=== PATIENT | male | born 1965 | race Two or more races ===

== ENCOUNTER 2017-08-19 23:40 | Inpatient (IN) | payer OTHER ==
[~2017-08-19] VITALS: Ht 172.7 cm; Wt 82.6 kg
[2017-08-20] VITALS (9 sets, daily range): BP systolic 98–128; BP diastolic 62–74
[2017-08-20] MEDS ORDERED: Morphine Sulfate 4mg/ml Inj IVP ONE ×3 (00:15→03:30)
[2017-08-20] MEDS ORDERED: Acetaminophen 500mg (ES) tab ORAL ONE (00:15)
[2017-08-20] MEDS ORDERED: cefTRIAXone 1 GM in NS 55 ML IVPB ONE (00:30)
[2017-08-20] MEDS ORDERED: Azithromycin 500 MG in NS 275 ML IV ONE (00:30)
[2017-08-20 00:57] LABS: BASOPHILS % (AUTO) 0.7 % (0.0-2.0); EOSINOPHILS % (AUTO) 0.9 % (0.0-3.0); HEMATOCRIT 40.1 % (42.0-52.0); HEMOGLOBIN 13.9 G/DL (14.2-18.0); LYMPHOCYTES % (AUTO) 16.6 % (20.0-45.0); MEAN CORPUSCULAR VOLUME 95 FL (80-99); MONOCYTES % (AUTO) 7.6 % (1.0-10.0); NEUTROPHILS % (AUTO) 74.2 % (45.0-75.0); PLATELET COUNT 320 K/UL (150-450); RED BLOOD COUNT 4.21 M/UL (4.70-6.10); RED CELL DISTRIBUTION WIDTH 10.5 % (11.6-14.8); WHITE BLOOD COUNT 14.6 K/UL (4.8-10.8)
[2017-08-20 01:10] LABS: ANION GAP 11 mmol/L (5-15); BLOOD UREA NITROGEN 24 mg/dL (7-18); CALCIUM 9.1 MG/DL (8.5-10.1); CARBON DIOXIDE 23 MMOL/L (21-32); CHLORIDE 104 MMOL/L (98-107); POTASSIUM 4.3 MMOL/L (3.5-5.1); SODIUM 138 MMOL/L (136-145)
[2017-08-20 01:25] LABS: ALANINE AMINOTRANSFERASE 24 U/L (12-78); ALBUMIN 3.4 G/DL (3.4-5.0); ALBUMIN/GLOBULIN RATIO 0.8 (1.0-2.7); ALKALINE PHOSPHATASE 77 U/L (46-116); ASPARTATE AMINO TRANSFERASE 21 U/L (15-37); BILIRUBIN,TOTAL 0.6 MG/DL (0.2-1.0); CKMB 0.5 NG/ML (0.0-3.6); CREATINE KINASE 45 U/L (26-308)
[2017-08-20] MEDS ORDERED: Isovue-370 150ml vial INJ PRN (01:30)
--- NOTE | 2017-08-20 02:05 | Emergency Room Report ---
History of Present Illness General Chief Complaint: Upper Respiratory Illness Source: Patient Present Illness HPI Is a 52-year-old male with no past medical history per patient. He presents with chief complaint is right-sided chest pain. He's been coughing and congested for 10 days. Saw a physician and prescribed Levaquin, Motrin and cough medicine. Not getting better. Pain is 10 out of 10 with inspiration or coughing. Denies any fever chills. Coughing is productive of phlegm. No radiation. Pain is sharp. Allergies: Coded Allergies: No Known Allergies (Unverified , 08/19/17) Patient History Past Medical History: see triage record, old chart reviewed Past Surgical History: none Pertinent Family History: none Social History: Denies: smoking Immunizations: other Reviewed Nursing Documentation: PMH: Agreed; PSxH: Agreed Nursing Documentation-PMH Past Medical History: No Stated History Review of Systems Eye: Denies: eye pain, blurred vision ENT: Denies: ear pain, nose congestion, throat swelling Respiratory: Reports: cough; Denies: shortness of breath Cardiovascular: Reports: chest pain; Denies: palpitations Gastrointestinal: Denies: abdominal pain, diarrhea, nausea, vomiting Musculoskeletal: Denies: back pain, joint pain Skin: Denies: rash Neurological: Denies: headache, numbness Endocrine: Denies: increased thirst, increased urine Hematologic/Lymphatic: Denies: easy bruising All Other Systems: negative except mentioned in HPI Physical Exam Vital Signs Date Time Temp Pulse Resp B/P (MAP) Pulse Ox O2 Delivery O2 Flow Rate FiO2 08/19/17 23:44 100.3 93 18 124/84 98 Room Air 100.2 vitals with fever Sp02 EP Interpretation: reviewed, normal General Appearance: well appearing, no apparent distress, alert Head: normocephalic, atraumatic Eyes: bilateral eye PERRL, bilateral eye EOMI ENT: hearing grossly normal, normal pharynx Neck: full range of motion, supple, no meningismus Respiratory: chest non-tender, decreased breath sounds, rhonchi - right lungs Cardiovascular #1: regular rate, rhythm, no murmur Gastrointestinal: normal bowel sounds, non tender, no mass, no organomegaly, no bruit, non-distended Musculoskeletal: back normal, gait/station normal, normal range of motion Psychiatric: mood/affect normal Skin: warm/dry Medical Decision Making Diagnostic Impression: Primary Impression: Community acquired bacterial pneumonia Additional Impression: Cavitary pneumonia ER Course Patient presents with cavitary pneumonia of the right lung. He has been on Levaquin for several days. I switched him to Rocephin and azithromycin. CT findings concerning for neoplastic process, possible TB, possible other granulomatosis infection. Will admit the patient in isolation. I contacted Dr. Rhodes for admission. Laboratory Tests Test 08/20/17 00:30 08/20/17 01:55 White Blood Count 14.6 K/UL (4.8-10.8) H Red Blood Count 4.21 M/UL (4.70-6.10) L Hemoglobin 13.9 G/DL (14.2-18.0) L Hematocrit 40.1 % (42.0-52.0) L Mean Corpuscular Volume 95 FL (80-99) Mean Corpuscular Hemoglobin 33.1 PG (27.0-31.0) H Mean Corpuscular Hemoglobin Concent 34.7 G/DL (32.0-36.0) Red Cell Distribution Width 10.5 % (11.6-14.8) L Platelet Count 320 K/UL (150-450) Mean Platelet Volume 8.0 FL (6.5-10.1) Neutrophils (%) (Auto) 74.2 % (45.0-75.0) Lymphocytes (%) (Auto) 16.6 % (20.0-45.0) L Monocytes (%) (Auto) 7.6 % (1.0-10.0) Eosinophils (%) (Auto) 0.9 % (0.0-3.0) Basophils (%) (Auto) 0.7 % (0.0-2.0) Sodium Level 138 MMOL/L (136-145) Potassium Level 4.3 MMOL/L (3.5-5.1) Chloride Level 104 MMOL/L (98-107) Carbon Dioxide Level 23 MMOL/L (21-32) Anion Gap 11 mmol/L (5-15) Blood Urea Nitrogen 24 mg/dL (7-18) H Creatinine 1.0 MG/DL (0.55-1.30) Estimat Glomerular Filtration Rate > 60 mL/min (>60) Glucose Level 123 MG/DL (74-106) H Lactic Acid Level 1.10 mmol/L (0.66-2.22) Calcium Level 9.1 MG/DL (8.5-10.1) Total Bilirubin 0.6 MG/DL (0.2-1.0) Aspartate Amino Transf (AST/SGOT) 21 U/L (15-37) Alanine Aminotransferase (ALT/SGPT) 24 U/L (12-78) Alkaline Phosphatase 77 U/L (46-116) Total Creatine Kinase 45 U/L (26-308) Creatine Kinase MB 0.5 NG/ML (0.0-3.6) Creatine Kinase MB Relative Index 1.1 Troponin I 0.000 ng/mL (0.000-0.056) Total Protein 7.9 G/DL (6.4-8.2) Albumin 3.4 G/DL (3.4-5.0) Globulin 4.5 g/dL Albumin/Globulin Ratio 0.8 (1.0-2.7) L Urine Color Yellow Urine Appearance Clear Urine pH 5 (4.5-8.0) Urine Specific [place] 1.020 (1.005-1.035) Urine Protein Negative (NEGATIVE) Urine Glucose (UA) Negative (NEGATIVE) Urine Ketones Negative (NEGATIVE) Urine Occult Blood Negative (NEGATIVE) Urine Nitrite Negative (NEGATIVE) Urine Bilirubin Negative (NEGATIVE) Urine Urobilinogen Normal MG/DL (0.0-1.0) Urine Leukocyte Esterase Negative (NEGATIVE) Lab Results Impression labs with leukocytosis EKG Diagnostic Results Rate: normal Rhythm: NSR ST Segments: no acute changes Rhythm Strip Diag. Results Rhythm Strip Time: 02:04 EP Interpretation: yes Rate: 82 Rhythm: NSR, no PVC's, no ectopy Chest X-Ray Diagnostic Results Chest X-Ray Diagnostic Results : Chest X-Ray Ordered: Yes # of Views/Limited/Complete: 1 View Indication: Chest Pain EP Interpretation: Yes Interpretation: no effusion, no pneumothorax, other - right lower lobe infiltrate Impression: Other - right lower lobe infiltrate Electronically Signed by: Jluis Hernandez MD CT/MRI/US Diagnostic Results CT/MRI/US Diagnostic Results : Imaging Test Ordered: CT chest Impression Read by radiologist. There is a focal consolidation of the right lower lobe with central cavitary measuring up to 4.9 cm. Last Vital Signs Date Time Temp Pulse Resp B/P (MAP) Pulse Ox O2 Delivery O2 Flow Rate FiO2 08/20/17 00:43 101.2 08/20/17 00:10 88 33 Room Air 08/20/17 00:00 112/71 97 Status: improved Disposition: ADMITTED INPATIENT Condition: Serious Referrals: [facility],REFERRING (PCP) JLUIS HERNANDEZ M.D. August 20, 2017 02:05
[2017-08-20 02:18] LABS: APPEARANCE,URINE CLEAR; BILIRUBIN, URINE NEGATIVE (NEGATIVE); GLUCOSE, URINE (UA) NEGATIVE (NEGATIVE); KETONES,URINE NEGATIVE (NEGATIVE); LEUKOCYTE ESTERASE ,URINE NEGATIVE (NEGATIVE); NITRITE,URINE NEGATIVE (NEGATIVE); PH,URINE 5 (4.5-8.0); PROTEIN,URINE NEGATIVE (NEGATIVE); UROBILINOGEN,URINE NORMAL MG/DL (0.0-1.0)
[2017-08-20 02:31] LABS: COLOR,URINE YELLOW
[2017-08-20] MEDS ORDERED: PHENERGAN25 M1 ORAL (05:03)
[2017-08-20] MEDS ORDERED: ZYRTEC10 MG ORAL (05:03)
[2017-08-20] MEDS ORDERED: IBUPROFEN600 MG ORAL (05:03)
[2017-08-20] MEDS ORDERED: LEVAQUIN250 M1 ORAL (05:03)
[2017-08-20] MEDS ORDERED: Albuterol/Ipratropium 3ml neb HHN PRN (08:30)
[2017-08-20] MEDS ORDERED: guaiFENesin 100mg/5ml Liq ud ORAL PRN (08:30)
[2017-08-20] MEDS: guaiFENesin ER 600mg tab ORAL SCH ×2 (09:35→17:05)
[2017-08-20] MEDS: Heparin 5000 units/ml inj SUBQ SCH ×2 (09:36→21:10)
--- NOTE | 2017-08-20 09:44 | Diagnostic Imaging Report ---
ndication: Shortness of breath Technique: IV administration nonionic contrast. Spiral acquisitions obtained from the lung bases to the lung apices. Multiplanar and 3-D reconstructions were generated. Total dose length product 961.62 mGycm. CTDIvol(s) 24.9 mGy. Dose reduction achieved using automated exposure control Comparison: none Findings: Pulmonary arterial opacification is suboptimal, precluding confident exclusion of small distal emboli. No evidence of thoracic aortic aneurysm or dissection. No pulmonary arterial dilatation. No evidence of right ventricular dilatation. There is borderline four-chamber cardiomegaly noted. There is a mass in the periphery of the right lower lobe which measures 4.5 cm AP by 3.9 cm transverse by 4 cm craniocaudad. This demonstrates fluid and cavitation centrally. Infiltrates, groundglass opacities, and atelectasis are seen in both lower lobes. There is generalized mild interstitial septal thickening. Inspiration is suboptimal. There is a trace right pleural effusion No pericardial effusion demonstrated. There is right hilar lymphadenopathy, with a node measuring 2 cm long axis dimension. No mediastinal lymphadenopathy. Esophagus is unremarkable. The visualized portions of the thyroid are unremarkable. No axillary or chest wall mass or adenopathy. The included upper abdominal anatomy demonstrates possible subtle gallstones. There is a retroaortic left renal vein. Impression: Suboptimal opacification of the pulmonary arteries, distal emboli could be missed. No evidence of large vessel central pulmonary embolus demonstrated 4.5 x 3.9 x 4 cm cavitary mass in the periphery of the right lower lobe. This may be either neoplastic or inflammatory. Right hilar lymphadenopathy, likely related to the above. This could likewise be neoplastic or inflammatory. Bilateral reticular interstitial and groundglass opacities. Nonspecific, suspect on the basis of pulmonary edema, but could also be infectious or noninfectious inflammatory Trace right pleural effusion Borderline cardiomegaly Very questionable cholelithiasis incidentally noted This agrees with the preliminary interpretation provided overnight by [facility] teleradiology service. The CT scanner at [facility] is accredited by the [employer] and the scans are performed using protocols designed to limit radiation exposure to as low as reasonably achievable to attain images of sufficient resolution adequate for diagnostic evaluation.
--- NOTE | 2017-08-20 10:19 | Diagnostic Imaging Report ---
Indication: Shortness of breath Technique: One view of the chest Comparison: none Findings: Inspiration is suboptimal. Atelectatic changes are seen at both lung bases. There is a mass with subtle central cavitation seen in the right midlung. There is generalized mild interstitial prominence. Heart size is upper limits of normal. Impression: Right midlung mass with subtle central cavitation, also described on subsequent chest CT. Neoplastic versus inflammatory Hypoventilatory exam with bilateral basilar atelectasis Nonspecific mild bilateral diffuse interstitial prominence
--- NOTE | 2017-08-20 10:29 | Consultation ---
Consult Note Consult Note PULMONARY & CRITICAL CARE CC: Lung mass/PNA HPI: 52 M current daily smoker p/w one week of cough congestion and SOB. He initially went to an UC and was Rx'd Levaquin to no avail. Tm 101.2, WCT 14, CT with RLL cavitary mass. No F/C, no ALDRIDGE, no dizziness, no weight loss, no hemoptysis, no N/V/D/C, no abdominal pain or urinary complaints. PMH: None PSH: None ALL: NKDA Active Scripts Medications Dose Route/Sig Max Daily Dose Days Date Category Phenergan* (Promethazine HCl) 25 Mg Tablet Unknown Dose ORAL 08/20/17 Reported Zyrtec* (Cetirizine HCl) 10 Mg Tablet Unknown Dose ORAL DAILY 08/20/17 Reported Motrin* (Ibuprofen) 600 Mg Tablet Unknown Dose ORAL 08/20/17 Reported Levaquin* (Levofloxacin) 250 Mg Tablet Unknown Dose ORAL DAILY 08/20/17 Reported SHx: 1/3 PPD X > 30 years, no drugs, no EtOH, from [place], works in [employer] RHx: N/C ROS: Neg other than HPI PE: Last 24 Hour Vital Signs Date Time Temp Pulse Resp B/P (MAP) Pulse Ox O2 Delivery O2 Flow Rate FiO2 08/20/17 08:01 98.0 73 19 98/62 93 Room Air 98.0 08/20/17 08:00 98.2 79 15 105/70 98 Room Air 98.2 08/20/17 06:50 73 19 98/62 93 Room Air 08/20/17 05:30 79 20 100/71 94 Room Air 08/20/17 04:13 98.0 08/20/17 03:30 98.0 82 19 107/68 95 Room Air 98.0 08/20/17 02:11 101.2 08/20/17 02:00 99.2 79 18 107/72 96 Room Air 99.2 08/20/17 01:42 99.2 08/20/17 00:43 101.2 08/20/17 00:42 101.2 08/20/17 00:10 88 33 Room Air 08/20/17 00:00 101.2 88 33 112/71 97 Room Air 101.2 08/19/17 23:44 100.3 93 18 124/84 98 Room Air 100.2 NAD, AAOX3 NC/AT, OPC c MMM Supple s LAD or JVD Scattered coarse, RLL rhonchi RRR S/NT/ND c NABS No C/C/E 08/19/17 CT-A CHEST: Impression: Suboptimal opacification of the pulmonary arteries, distal emboli could be missed. No evidence of large vessel central pulmonary embolus demonstrate 4.5 x 3.9 x 4 cm cavitary mass in the periphery of the right lower lobe. This may be either neoplastic or inflammatory Right hilar lymphadenopathy, likely related to the above. This could likewise be neoplastic or inflammatory Bilateral reticular interstitial and groundglass opacities. Nonspecific, suspect on the basis of pulmonary edema, but could also be infectious or noninfectious inflammator Tracright pleural effusion Borderline cardiomegaly betsy questionable cholelithiasis incidentally noted Assessment/Plan ASSESSMENT: * 4 cm RLL cavitary mass with R hilar LAD, CAP vs neoplasm * Extensive daily smoker * B GGO's and CM * Periorbital Xanthomas PLAN: * R/O TB with AFB x 3 * Sputum Cx * Atypical serologies sent * Zosyn (D1) * PRN HHN's * CTGBx * Optimize pulmonary hygiene/mobilize as tolerated * Nicotine patch * Discuss tobacco cessation * Monitor volumes * TTE * HbA1C, lipid panel * DVT Px: Hep SQ * FC Ahsan Rhodes MD, [facility] Pul[facility] Critical [facility] Medicine AHSAN RHODES M.D. August 20, 2017 10:28
[2017-08-20] MEDS ORDERED: Lidocaine 1% Plain 30 ml INJ PRN (10:30)
[2017-08-20 11:57] LABS: CHOLESTEROL 130 MG/DL (< 200); HDL CHOLESTEROL 24 MG/DL (40-60); TRIGLYCERIDES 91 MG/DL (30-150)
[2017-08-20] MEDS ORDERED: LORazepam 1mg tab ORAL PRN (12:15)
[2017-08-20] MEDS ORDERED: Morphine Sulfate 4mg/ml Inj IVP PRN (12:45)
[2017-08-20] MEDS: Piperacillin/Tazobactam 3.375 GM in NS 110 ML IVPB SCH (14:21)
--- NOTE | 2017-08-20 15:09 | History and Physical ---
History of Present Illness General Date patient seen: August 20, 2017 Time patient seen: 11:11 Reason for Hospitalization: Upper Respiratory Illness Present Illness HPI This is a 52 y/o male with a PMH of tobacco abuse who presents to the ER for right-sided chest pain. EKG was NSR and initial troponin was negative. CXR did show right midlung mass with subtle central cavitation c/w neoplasm vs. inflammation. Patient reports that he has been having productive cough for the last 1 week for which he was prescribed levaquin for by his PCP. In the ED, T was noted to be 101.4 and WBC 14. Patient was started on IV abx and IVF. CT chest w/ contrast was also obtained, which showed no e/o large vessel central pulmonary embolus. A 4.5 x 3.9 x 4 cm cavitary mass in the periphery of the right lower lobe. This may be either neoplastic or inflammatory. Right hilar LAD , likely related to the above. Bilateral reticular interstitial and groundglass opacities. Trace right pleural effusion, borderline cardiomegaly, and questionable cholelithiasis were also seen on the CT. CT findings were discussed in depth with patient. Patient does admit to smoking 1/3 pack for the last 20 years. Denies any other drug use or alcohol abuse. Continues to report right-sided chest pain and f/c. Denies sob, n/v, abdominal pain. Allergies: Coded Allergies: No Known Allergies (Unverified , 08/19/17) Medication History Scheduled Cetirizine Hcl* (Zyrtec*), Unknown Dose ORAL DAILY, (Reported) Levofloxacin* (Levaquin*), Unknown Dose ORAL DAILY, (Reported) Miscellaneous Medications Ibuprofen* (Motrin*), Unknown Dose ORAL, (Reported) Promethazine Hcl* (Phenergan*), Unknown Dose ORAL, (Reported) Patient History Healthcare decision maker Resuscitation status Full Code Advanced Directive on File Review of Systems All Other Systems: negative except mentioned in HPI Physical Exam General Appearance: no apparent distress, alert HEENT: normocephalic, atraumatic Neck: non-tender, normal alignment, supple Respiratory/Chest: chest wall non-tender, no respiratory distress, decreased breath sounds Cardiovascular/Chest: normal peripheral pulses, normal rate, regular rhythm Abdomen: normal bowel sounds, non tender, soft Extremities: normal range of motion, non-tender Skin Exam: normal pigmentation, warm/dry Neurologic: die keeper II-XII grossly normal, no motor/sensory deficits, alert, oriented x 3 Last 24 Hour Vital Signs Date Time Temp Pulse Resp B/P (MAP) Pulse Ox O2 Delivery O2 Flow Rate FiO2 08/20/17 12:12 82 16 Room Air 21 08/20/17 08:01 98.0 73 19 98/62 93 Room Air 98.0 08/20/17 08:00 98.2 79 15 105/70 98 Room Air 98.2 08/20/17 06:50 73 19 98/62 93 Room Air 08/20/17 05:30 79 20 100/71 94 Room Air 08/20/17 04:13 98.0 08/20/17 03:30 98.0 82 19 107/68 95 Room Air 98.0 08/20/17 02:11 101.2 08/20/17 02:00 99.2 79 18 107/72 96 Room Air 99.2 08/20/17 01:42 99.2 08/20/17 00:43 101.2 08/20/17 00:42 101.2 08/20/17 00:10 88 33 Room Air 08/20/17 00:00 101.2 88 33 112/71 97 Room Air 101.2 08/19/17 23:44 100.3 93 18 124/84 98 Room Air 100.2 Intake and Output 08/19/17 08/20/17 19:00 07:00 Intake Total 2800 ml Balance 2800 ml Intake IV Total 2800 ml Laboratory Tests Test 08/20/17 00:30 08/20/17 01:55 08/20/17 08:16 08/20/17 11:00 White Blood Count 14.6 K/UL (4.8-10.8) H Red Blood Count 4.21 M/UL (4.70-6.10) L Hemoglobin 13.9 G/DL (14.2-18.0) L Hematocrit 40.1 % (42.0-52.0) L Mean Corpuscular Volume 95 FL (80-99) Mean Corpuscular Hemoglobin 33.1 PG (27.0-31.0) H Mean Corpuscular Hemoglobin Concent 34.7 G/DL (32.0-36.0) Red Cell Distribution Width 10.5 % (11.6-14.8) L Platelet Count 320 K/UL (150-450) Mean Platelet Volume 8.0 FL (6.5-10.1) Neutrophils (%) (Auto) 74.2 % (45.0-75.0) Lymphocytes (%) (Auto) 16.6 % (20.0-45.0) L Monocytes (%) (Auto) 7.6 % (1.0-10.0) Eosinophils (%) (Auto) 0.9 % (0.0-3.0) Basophils (%) (Auto) 0.7 % (0.0-2.0) Sodium Level 138 MMOL/L (136-145) Potassium Level 4.3 MMOL/L (3.5-5.1) Chloride Level 104 MMOL/L (98-107) Carbon Dioxide Level 23 MMOL/L (21-32) Anion Gap 11 mmol/L (5-15) Blood Urea Nitrogen 24 mg/dL (7-18) H Creatinine 1.0 MG/DL (0.55-1.30) Estimat Glomerular Filtration Rate > 60 mL/min (>60) Glucose Level 123 MG/DL (74-106) H Lactic Acid Level 1.10 mmol/L (0.66-2.22) Calcium Level 9.1 MG/DL (8.5-10.1) Total Bilirubin 0.6 MG/DL (0.2-1.0) Aspartate Amino Transf (AST/SGOT) 21 U/L (15-37) Alanine Aminotransferase (ALT/SGPT) 24 U/L (12-78) Alkaline Phosphatase 77 U/L (46-116) Total Creatine Kinase 45 U/L (26-308) Creatine Kinase MB 0.5 NG/ML (0.0-3.6) Creatine Kinase MB Relative Index 1.1 Troponin I 0.000 ng/mL (0.000-0.056) Total Protein 7.9 G/DL (6.4-8.2) Albumin 3.4 G/DL (3.4-5.0) Globulin 4.5 g/dL Albumin/Globulin Ratio 0.8 (1.0-2.7) L Urine Color Yellow Urine Appearance Clear Urine pH 5 (4.5-8.0) Urine Specific [place] 1.020 (1.005-1.035) Urine Protein Negative (NEGATIVE) Urine Glucose (UA) Negative (NEGATIVE) Urine Ketones Negative (NEGATIVE) Urine Occult Blood Negative (NEGATIVE) Urine Nitrite Negative (NEGATIVE) Urine Bilirubin Negative (NEGATIVE) Urine Urobilinogen Normal MG/DL (0.0-1.0) Urine Leukocyte Esterase Negative (NEGATIVE) Erythrocyte Sedimentation Rate 63 MM/HR (0-20) H Hemoglobin A1c 4.9 % (4.3-6.0) C-Reactive Protein, Quantitative 7.0 mg/dL (0.00-0.90) H Triglycerides Level 91 MG/DL (30-150) Cholesterol Level 130 MG/DL (< 200) LDL Cholesterol 90 mg/dL (<100) HDL Cholesterol 24 MG/DL (40-60) L Cholesterol/HDL Ratio 5.4 (3.3-4.4) H Anti-Nuclear Antibody Screen Pending c-ANCA Titer Pending p-ANCA Titer Pending Coccidioides Antibody (Comp Fix) Pending Mycoplasma pneumoniae IgG Antibody Pending Mycoplasma pneumoniae IgM Ab Titer Pending Aspergillus flavus Antibody Pending Aspergillus fumigatus Antibody Pending Aspergillus niger Antibody Pending TB Test (T-Spot) Pending TB Test Nil Control (T-Spot) Pending TB Test Panel A (T-Spot) Pending TB Test Panel B (T-Spot) Pending TB Test Positive Control (T-Spot) Pending Test 08/20/17 11:50 Histoplasma Antigen Pending Urine Legionella Antigen Pending Height (Feet): 5 Height (Inches): 8.00 Weight (Pounds): 182 Medications Current Medications Medications (Trade) Dose Ordered Sig/Tracy Route PRN Reason Start Time Stop Time Status Last Admin Dose Admin Acetaminophen (Tylenol) 650 mg Q6H PRN ORAL Mild Pain/Temp > 100.5 08/20/17 12:45 09/19/17 12:44 Acetaminophen/ Hydrocodone Bitart ([place] 10/325) 1 tab Q4H PRN ORAL Moderate Pain (Pain Scale 4-6) 08/20/17 12:45 08/27/17 12:44 Albuterol/ Ipratropium (Albuterol/ Ipratropium) 3 ml Q4H PRN HHN Shortness of Breath 08/20/17 08:30 08/25/17 08:29 Guaifenesin (Mucinex ER) 600 mg TWICE A DAY ORAL 5/22/18 09:00 09/19/17 08:59 08/20/17 09:35 Guaifenesin (Robitussin) 100 mg Q4H PRN ORAL For Cough 08/20/17 08:30 09/19/17 08:29 Heparin Sodium (Porcine) (Heparin 5000 units/ml) 5,000 units EVERY 12 HOURS SUBQ 08/20/17 09:00 09/19/17 08:59 08/20/17 09:36 Iopamidol (Isovue-370 150ml) 150 ml NOW PRN INJ Radiology Procedure 08/20/17 01:30 08/22/17 01:19 Lidocaine HCl (Xylocaine 1% 30ml) 30 ml NOW PRN INJ Radiology Procedure 08/20/17 10:30 08/20/17 23:59 Lorazepam (Ativan) 2 mg Q6H PRN ORAL For Anxiety 08/20/17 12:15 08/27/17 12:14 Morphine Sulfate (Morphine Sulfate) 4 mg Q4H PRN IVP Severe Pain (Pain Scale 7-10) 08/20/17 12:45 08/27/17 12:44 Nicotine (Nicoderm) 1 patch Q24H TDERMAL 08/20/17 12:00 09/19/17 11:59 08/20/17 12:38 Piperacillin Sod/ Tazobactam Sod 3.375 gm/Sodium Chloride 110 ml @ 27.5 mls/hr EVERY 8 HOURS IVPB 08/20/17 14:00 08/25/17 13:59 08/20/17 14:21 Assessment/Plan Problem List: (1) Tobacco abuse ICD Codes: Z72.0 - Tobacco use SNOMED: 436274051 (2) Community acquired bacterial pneumonia ICD Codes: J15.9 - Unspecified bacterial pneumonia; J98.4 - Other disorders of lung SNOMED: 113337326, 30033988 (3) Cavitary pneumonia ICD Codes: J18.9 - Pneumonia, unspecified organism; J98.4 - Other disorders of lung SNOMED: 475062103 (4) Sepsis due to pneumonia ICD Codes: J18.9 - Pneumonia, unspecified organism; A41.9 - Sepsis, unspecified organism SNOMED: 00520914, 693746055 Status: stable, progressing Assessment/Plan - Admit to inpatient - Pulmonology and ID following - IV azithromycin and ceftriaxone - AFB x 3, r/o TB - airborne precautions - f/u sputum cx - f/u blood cx - atypical serologies sent - duonebs prn - CT-guided biopsy to r/o malignancy given cavitary mass. Risks and benefits explained to patient in detail including the risks of infection, bleeding, and PTX. Patient agreeable to proceed. - Nicotine patch - IVF - TTE - lipid panel, A1c - pain and supportive care DVT Prophylaxis: SCD, HSQ Code Status: Full Hospital Classification Declaration: Based on this initial evaluation, and depending on the patient's clinical course, I anticipate that this patient will require hospitalization for [] days for [] and close respiratory/hemodynamic monitoring. Disposition: Once the patient is stable to leave the hospital, I anticipate the patient will likely be discharged to the following environment: home with I spent 72 minutes on this patient's case, and 42 minutes were dedicated to counseling and/or care coordination. Discussed with patient/family, nursing staff, SW/CM, ID, and newspaper writer regarding clinical status, treatment course , and disposition planning. Thank you for this consultation, Dr. Rhodes. Time of note may not reflect time of encounter. Janine Plasencia NP August 20, 2017 15:09
--- NOTE | 2017-08-20 16:05 | Cardiology Report ---
APPROVED REPORT EXAM: Two-dimensional and M-mode echocardiogram with Doppler and color Doppler. INDICATION Chest Pain M-Mode DIMENSIONS IVSd0.9 (0.7-1.1cm)Left Atrium (MM)4.5 (1.6-4.0cm) LVDd5.4 (3.5-5.6cm)Aortic Root2.7 (2.0-3.7cm) PWd1.0 (0.7-1.1cm)Aortic Cusp Exc.1.8 (1.5-2.0cm) IVSs0.9 cm LVDs3.8 (2.5-4.0cm) PWs1.1 cm Technically difficult study due to poor acoustical windows. Normal left ventricular chamber size, systolic function and wall motion. Left ventricular ejection fraction estimated to be 60-65%. No evidence of left ventricular hypertrophy. No evidence of pericardial or pleural effusion. All other cardiac chamber sizes are within normal limits. Focal aortic valve sclerosis with adequate cusp excursion. Thickened mitral valve leaflets with normal excursion. Mild mitral annulus and aortic root calcification. Pulmonic valve not well visualized. Normal tricuspid valve structure. IVC is not clearly seen and may be underfilled suggestive of low RA pressure A color flow and spectral Doppler study was performed and revealed: No aortic regurgitation. No mitral regurgitation. Mitral diastolic velocities suggest reduced left ventricular relaxation c/w diastolic dysfunction grade 1. No tricuspid regurgitation. Pulmonic regurgitation present.
--- NOTE | 2017-08-20 20:11 | Infectious Diseases Prog Note ---
Assessment/Plan Assessment/Plan Full consult dictated: A) 1) pneumonia vs neoplasm, ? cap, ? atypical, ? fungal, ? tuberculosis, ? mrsa , ? post-obstructive/anaerobic 2) ? sepsis, leukocytosis, fevers 3) pmh noted 4) allergies - nkda P) 1) zosyn and vancomycin, azithromycin 2) check sputum cultures, check biopsy, check serology, f/u lab, f/u chest x- ray 3) d/w Dr. Rhodes about abx 4) thank you Subjective Allergies: Coded Allergies: No Known Allergies (Unverified , 08/19/17) Objective Vital Signs Last 24 Hour Vital Signs Date Time Temp Pulse Resp B/P (MAP) Pulse Ox O2 Delivery O2 Flow Rate FiO2 08/20/17 18:15 100.4 08/20/17 17:16 100.9 08/20/17 16:00 100.9 85 18 111/71 85 Room Air 100.9 08/20/17 12:12 82 16 Room Air 21 08/20/17 12:00 98.2 80 16 110/74 98 Room Air 98.2 08/20/17 08:01 98.0 73 19 98/62 93 Room Air 98.0 08/20/17 08:00 98.2 79 15 105/70 98 Room Air 98.2 08/20/17 06:50 73 19 98/62 93 Room Air 08/20/17 05:30 79 20 100/71 94 Room Air 08/20/17 04:13 98.0 08/20/17 03:30 98.0 82 19 107/68 95 Room Air 98.0 08/20/17 02:11 101.2 08/20/17 02:00 99.2 79 18 107/72 96 Room Air 99.2 08/20/17 01:42 99.2 08/20/17 00:43 101.2 08/20/17 00:42 101.2 08/20/17 00:10 88 33 Room Air 08/20/17 00:00 101.2 88 33 112/71 97 Room Air 101.2 08/19/17 23:44 100.3 93 18 124/84 98 Room Air 100.2 Height (Feet): 5 Height (Inches): 8.00 Weight (Pounds): 182 Laboratory Tests Test 5/22/18 00:30 08/20/17 01:55 08/20/17 08:16 08/20/17 11:00 White Blood Count 14.6 K/UL (4.8-10.8) H Red Blood Count 4.21 M/UL (4.70-6.10) L Hemoglobin 13.9 G/DL (14.2-18.0) L Hematocrit 40.1 % (42.0-52.0) L Mean Corpuscular Volume 95 FL (80-99) Mean Corpuscular Hemoglobin 33.1 PG (27.0-31.0) H Mean Corpuscular Hemoglobin Concent 34.7 G/DL (32.0-36.0) Red Cell Distribution Width 10.5 % (11.6-14.8) L Platelet Count 320 K/UL (150-450) Mean Platelet Volume 8.0 FL (6.5-10.1) Neutrophils (%) (Auto) 74.2 % (45.0-75.0) Lymphocytes (%) (Auto) 16.6 % (20.0-45.0) L Monocytes (%) (Auto) 7.6 % (1.0-10.0) Eosinophils (%) (Auto) 0.9 % (0.0-3.0) Basophils (%) (Auto) 0.7 % (0.0-2.0) Sodium Level 138 MMOL/L (136-145) Potassium Level 4.3 MMOL/L (3.5-5.1) Chloride Level 104 MMOL/L (98-107) Carbon Dioxide Level 23 MMOL/L (21-32) Anion Gap 11 mmol/L (5-15) Blood Urea Nitrogen 24 mg/dL (7-18) H Creatinine 1.0 MG/DL (0.55-1.30) Estimat Glomerular Filtration Rate > 60 mL/min (>60) Glucose Level 123 MG/DL (74-106) H Lactic Acid Level 1.10 mmol/L (0.66-2.22) Calcium Level 9.1 MG/DL (8.5-10.1) Total Bilirubin 0.6 MG/DL (0.2-1.0) Aspartate Amino Transf (AST/SGOT) 21 U/L (15-37) Alanine Aminotransferase (ALT/SGPT) 24 U/L (12-78) Alkaline Phosphatase 77 U/L (46-116) Total Creatine Kinase 45 U/L (26-308) Creatine Kinase MB 0.5 NG/ML (0.0-3.6) Creatine Kinase MB Relative Index 1.1 Troponin I 0.000 ng/mL (0.000-0.056) Total Protein 7.9 G/DL (6.4-8.2) Albumin 3.4 G/DL (3.4-5.0) Globulin 4.5 g/dL Albumin/Globulin Ratio 0.8 (1.0-2.7) L Urine Color Yellow Urine Appearance Clear Urine pH 5 (4.5-8.0) Urine Specific [place] 1.020 (1.005-1.035) Urine Protein Negative (NEGATIVE) Urine Glucose (UA) Negative (NEGATIVE) Urine Ketones Negative (NEGATIVE) Urine Occult Blood Negative (NEGATIVE) Urine Nitrite Negative (NEGATIVE) Urine Bilirubin Negative (NEGATIVE) Urine Urobilinogen Normal MG/DL (0.0-1.0) Urine Leukocyte Esterase Negative (NEGATIVE) Erythrocyte Sedimentation Rate 63 MM/HR (0-20) H Hemoglobin A1c 4.9 % (4.3-6.0) C-Reactive Protein, Quantitative 7.0 mg/dL (0.00-0.90) H Triglycerides Level 91 MG/DL (30-150) Cholesterol Level 130 MG/DL (< 200) LDL Cholesterol 90 mg/dL (<100) HDL Cholesterol 24 MG/DL (40-60) L Cholesterol/HDL Ratio 5.4 (3.3-4.4) H Anti-Nuclear Antibody Screen Pending c-ANCA Titer Pending p-ANCA Titer Pending Coccidioides Antibody (Comp Fix) Pending Mycoplasma pneumoniae IgG Antibody Pending Mycoplasma pneumoniae IgM Ab Titer Pending Aspergillus flavus Antibody Pending Aspergillus fumigatus Antibody Pending Aspergillus niger Antibody Pending TB Test (T-Spot) Pending TB Test Nil Control (T-Spot) Pending TB Test Panel A (T-Spot) Pending TB Test Panel B (T-Spot) Pending TB Test Positive Control (T-Spot) Pending Test 08/20/17 11:50 08/20/17 11:51 08/20/17 16:20 Histoplasma Antigen Pending Urine Legionella Antigen Pending M. tuberculosis Complex DNA (PCR) Pending Troponin I 0.000 ng/mL (0.000-0.056) Current Medications Medications (Trade) Dose Ordered Sig/Tracy Route PRN Reason Start Time Stop Time Status Last Admin Dose Admin Acetaminophen (Tylenol) 650 mg Q6H PRN ORAL Mild Pain/Temp > 100.5 08/20/17 12:45 09/19/17 12:44 08/20/17 17:16 Acetaminophen/ Hydrocodone Bitart ([place] 10/325) 1 tab Q4H PRN ORAL Moderate Pain (Pain Scale 4-6) 08/20/17 12:45 08/27/17 12:44 Albuterol/ Ipratropium (Albuterol/ Ipratropium) 3 ml Q4H PRN HHN Shortness of Breath 08/20/17 08:30 08/25/17 08:29 Guaifenesin (Mucinex ER) 600 mg TWICE A DAY ORAL 08/20/17 09:00 09/19/17 08:59 08/20/17 17:05 Guaifenesin (Robitussin) 100 mg Q4H PRN ORAL For Cough 08/20/17 08:30 09/19/17 08:29 Heparin Sodium (Porcine) (Heparin 5000 units/ml) 5,000 units EVERY 12 HOURS SUBQ 08/20/17 09:00 09/19/17 08:59 08/20/17 09:36 Iopamidol (Isovue-370 150ml) 150 ml NOW PRN INJ Radiology Procedure 08/20/17 01:30 08/22/17 01:19 Lidocaine HCl (Xylocaine 1% 30ml) 30 ml NOW PRN INJ Radiology Procedure 08/20/17 10:30 08/20/17 23:59 Lorazepam (Ativan) 2 mg Q6H PRN ORAL For Anxiety 08/20/17 12:15 08/27/17 12:14 Morphine Sulfate (Morphine Sulfate) 4 mg Q4H PRN IVP Severe Pain (Pain Scale 7-10) 08/20/17 12:45 08/27/17 12:44 Nicotine (Nicoderm) 1 patch Q24H TDERMAL 08/20/17 12:00 09/19/17 11:59 08/20/17 12:38 Piperacillin Sod/ Tazobactam Sod 3.375 gm/Sodium Chloride 110 ml @ 27.5 mls/hr EVERY 8 HOURS IVPB 08/20/17 14:00 08/25/17 13:59 08/20/17 14:21 RENAE WING August 20, 2017 20:11
[2017-08-20] MEDS ORDERED: Vancomycin 1.5 GM/D5W 250ML IVPB SCH (21:00)
[2017-08-20] MEDS: HYDROcodone/Acetamin 10/325 tab ORAL PRN (21:08)
[2017-08-21] VITALS: BP 116/69
[2017-08-21] MEDS: Piperacillin/Tazobactam 3.375 GM in NS 110 ML IVPB SCH ×4 (00:38→23:17)
--- NOTE | 2017-08-21 02:30 | Consultation ---
DATE OF CONSULTATION: 08/20/2017 INFECTIOUS DISEASE CONSULTATION CONSULTING PHYSICIAN: Harsha Diez M.D. ATTENDING PHYSICIAN: Ahsan Rhodes M.D. REFERRING PHYSICIANS: 1. Ahsan Rhodes M.D. 2. Rashad Faust M.D. 3. Janine Plasencia, nurse practitioner. REASON FOR CONSULTATION: Possible pneumonia, leukocytosis, fevers, questionable sepsis. CHIEF COMPLAINT: The patient's chief complaint coming in the hospital is pneumonia. HISTORY OF PRESENT ILLNESS: This is a 52-year-old male, who has history of smoking, who over the last 2 weeks has been coughing. He has had cough, congestion, and has whitish-yellow sputum production. The patient was given in the outpatient setting what looks like antibiotics including Levaquin. The patient was admitted to [facility] because of fevers, elevated white count, pneumonia seen on chest x-ray, and CT scan which showed cavitary lesions specifically in the right lower periphery with a right lower lobe cavitary mass. Infectious Disease consultation was requested for antibiotic management. The patient was placed on Zosyn, vancomycin, and azithromycin. Case was discussed with Dr. Rhodes about antibiotics in this patient. Serology and cultures have been sent and I believe a biopsy is planned for this patient. The patient was also placed on isolation because of the possibility of tuberculosis and the patient has a cavitary lesion. MAR was noted. Orders were noted. Notes were reviewed. Case was discussed with the patient and the RN. PAST MEDICAL HISTORY: The patient has history of the following. The patient has past medical history of nicotine dependency. He denies any history of diabetes or hypertension. Past medical history otherwise is negative. MEDICATIONS: Upon reviewing the MAR, he is on the following medications. He is on Zosyn, acetaminophen. He started vancomycin. He is on azithromycin, morphine, lorazepam, nicotine, lidocaine, cough syrup, heparin, and albuterol treatments. Outside medications noted and reconciliated. He was given Levaquin as an outpatient, Zyrtec, and Phenergan. ALLERGIES: No known drug allergies. No antibiotic allergies. SOCIAL HISTORY: Positive for smoking. No alcohol or drug abuse. FAMILY HISTORY: Noncontributory. Negative for exposure to tuberculosis or cancer. TRAVEL HISTORY: He was in [place] he states 3 months ago, otherwise no other risk factors such as tick bites or mosquito bites. REVIEW OF SYSTEMS: CONSTITUTIONAL: The patient denies any night sweats or weight loss. He does have fevers and chills. He has generalized fatigue, but no new focal weakness. HEAD AND NECK: No thrush, dysphagia, sinus tenderness, neck stiffness, or change in vision. CARDIAC: No chest pain or palpitations. GASTROINTESTINAL: No nausea, vomiting, or diarrhea. GENITOURINARY: No dysuria or frequency. No CVA tenderness. PULMONARY: He stated he has cough for around close to two weeks including whitish and yellow sputum production and phlegm. No hemoptysis mentioned. SKIN: No rash or itching. EXTREMITIES: No extremity pain. NEUROLOGIC: No seizures. PHYSICAL EXAMINATION: GENERAL: Alert and responsive. He looks weak, but is responsive and oriented x3. VITAL SIGNS: The patient has been consistently febrile, T-max 101.2 degrees and currently temperature 100.4 degrees, pulse rate 85, respiratory rate 18, blood pressure 111/71, and saturation 85% on room air to 98%. Pulse rate has been as high as 93. Respiratory rate has been as high as 33. HEAD AND NECK: Oral exam, no thrush. Eye exam, no icterus. No sinus tenderness. Normocephalic. No facial droop. No neck stiffness. Neck is supple. HEART: Regular. No gallop or murmur. ABDOMEN: Soft. Positive bowel sounds. Nontender. LUNGS: Few bilateral rhonchi and possible rales on the right. SKIN: No rash. MUSCULOSKELETAL: No effusion. Legs without cellulitis. PERIPHERAL VASCULAR: No cyanosis or gangrene. NEUROLOGIC: Intact. LINES: Line sites without phlebitis. GENITOURINARY: No Zuleta. No CVA tenderness. LABORATORY AND DIAGNOSTIC DATA: Laboratory data as follows. White count 14.6 and hemoglobin 13.9. The patient's creatinine is 1.0. LFTs were noted. Chest x-ray shows right mid lung mass with subtle central cavitation. CT scan of the chest showed a cavitating mass in the periphery of the right lower lobe. It showed right hilar adenopathy. It showed reticular, interstitial, and ground-glass opacities that are nonspecific for edema versus inflammatory process versus infection. Report was noted. Serology has been ordered and cultures are pending. UA was negative. ASSESSMENT AND PLAN: 1. The patient has possible pneumonia, rule out neoplastic process. Differential is community-acquired pneumonia, question of atypical such as fungal pneumonia, rule out tuberculosis with cavitary lesions. Rule out MRSA pneumonia with cavitary lesions. Rule out neoplasm, rule out postobstructive pneumonia, rule out possible postobstructive anaerobic pneumonia. At this time, we will place the patient on vancomycin and Zosyn for MRSA, gram-negative, and anaerobic coverage. Also cover Streptococcus pneumonia. We will check sputum culture, blood cultures, laboratories, and chest x-ray. We will also check serology for fungal, cryptococcus, histoplasmosis, coccidioidomycosis, Legionella, Mycoplasma. Check TB Gold test. AFB has been ordered. Continue vancomycin, Zosyn, and azithromycin for now pending workup. Watch the patient's temperatures and white count. Of note, the patient also could have early sepsis with SIRS criteria including leukocytosis, fevers, heart rate over 90, and elevated respiratory rate. The patient's saturations are on low side, watch closely. The patient may need transfer to higher level of care. Antibiotics were discussed with Dr. Rhodes. The patient also is to undergo biopsy and discussed with Dr. Rhodes. Followup labs and chest x-ray have also been ordered. 2. The patient has no other significant past medical history. 3. Watch creatinine and antibiotics. 4. Elevated sedimentation rate was noted. 5. Mild anemia. 6. Nicotine dependency. 7. Social history, positive for smoking. 8. Family history noncontributory. 9. MAR was noted. 10. Case discussed with RN. 11. No known allergies. 12. Continue treatment per primary consultants. 13. Notes were noted. 14. Orders were entered. 15. Case discussed with the patient. Harsha Diez M.D. DR: EVANGELINA JOB#: [id number] CC: CIRO
[2017-08-21 04:00] VITALS: BP 115/80
[2017-08-21 07:36] LABS: BASOPHILS % (AUTO) 0.5 % (0.0-2.0); EOSINOPHILS % (AUTO) 1.2 % (0.0-3.0); HEMATOCRIT 34.7 % (42.0-52.0); HEMOGLOBIN 12.1 G/DL (14.2-18.0); LYMPHOCYTES % (AUTO) 23.6 % (20.0-45.0); MEAN CORPUSCULAR VOLUME 95 FL (80-99); MONOCYTES % (AUTO) 7.7 % (1.0-10.0); PLATELET COUNT 292 K/UL (150-450); RED BLOOD COUNT 3.65 M/UL (4.70-6.10); RED CELL DISTRIBUTION WIDTH 10.4 % (11.6-14.8); WHITE BLOOD COUNT 12.4 K/UL (4.8-10.8)
[2017-08-21 07:55] LABS: ANION GAP 8 mmol/L (5-15); BLOOD UREA NITROGEN 19 mg/dL (7-18); CALCIUM 8.5 MG/DL (8.5-10.1); CARBON DIOXIDE 24 MMOL/L (21-32); CHLORIDE 105 MMOL/L (98-107); POTASSIUM 3.9 MMOL/L (3.5-5.1); SODIUM 137 MMOL/L (136-145)
[2017-08-21 08:00] VITALS: BP 132/70
[2017-08-21 08:31] LABS: INR 1.1 (0.9-1.1)
[2017-08-21] MEDS: Azithromycin 250mg tab ORAL SCH (09:09)
[2017-08-21] MEDS: guaiFENesin ER 600mg tab ORAL SCH ×2 (09:09→18:13)
[2017-08-21] MEDS: Heparin 5000 units/ml inj SUBQ SCH ×2 (09:11→21:11)
[2017-08-21] MEDS: Vancomycin 1250mg/D5W 250ml IVPB SCH ×2 (09:15→21:09)
--- NOTE | 2017-08-21 09:51 | Pulmonology Progress Note ---
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 * Extensive daily smoker * B GGO's and CM * Periorbital Xanthomas PLAN: * R/O TB with AFB x 3 * F/U sputum Cx * F/U Atypical infectious and inflammatory serologies * Mildred Whitehead & Loco (D2) per ID * PRN HHN's * Cancel CTGBx ----> Discussed with patient, will complete course of Abx then will get PET/CT in 4 weeks @ [facility] * Optimize pulmonary hygiene/mobilize as tolerated * Nicotine patch * Discuss tobacco cessation * Monitor volumes * Outpatient PFT's * DVT Px: Hep SQ * FC * Can F/U with me in 1-2 weeks after D/C or earlier PRN Subjective Allergies: Coded Allergies: No Known Allergies (Unverified , 08/19/17) Subjective AFVSS, stable on RA + cough, productive of yellow phlegm No F, + chills at nights, no N/VD/C WCt better, CX's, AFB and serologies pending Objective Last 24 Hour Vital Signs Date Time Temp Pulse Resp B/P (MAP) Pulse Ox O2 Delivery O2 Flow Rate FiO2 08/21/17 08:00 97.3 68 21 132/70 95 Room Air 97.3 08/21/17 04:37 99.1 08/21/17 04:00 100.0 88 20 115/80 96 100.0 08/21/17 03:38 100.0 08/21/17 00:00 99.5 90 22 116/69 98 99.5 08/20/17 20:37 92 18 Room Air 21 08/20/17 20:00 99.6 92 20 128/66 98 99.6 08/20/17 17:16 100.9 08/20/17 16:00 100.9 85 18 111/71 85 Room Air 100.9 08/20/17 12:12 82 16 Room Air 21 08/20/17 12:00 98.2 80 16 110/74 98 Room Air 98.2 Intake and Output 08/20/17 08/21/17 19:00 07:00 Intake Total 500 ml 380.0 ml Output Total 800 ml 500 ml Balance -300 ml -120.0 ml Intake Oral 500 ml 20 ml IV Total 360.0 ml Output Urine Total 800 ml 500 ml Stool Total 0 ml General Appearance: WD/WN, no acute distress HEENT: normocephalic, atraumatic, anicteric, mucous membranes moist Respiratory/Chest: chest wall non-tender, lungs clear, rhonchi - scattered Cardiovascular: normal peripheral pulses, normal rate, regular rhythm, regularly irregular Abdomen: normal bowel sounds, soft, non tender, no organomegaly, non distended Extremities: no cyanosis, no clubbing, no edema Microbiology Date/Time Source Procedure Growth Status 08/20/17 00:35 Blood Blood Culture - Preliminary NO GROWTH AFTER 24 HOURS Resulted 08/20/17 00:30 Blood Blood Culture - Preliminary NO GROWTH AFTER 24 HOURS Resulted 08/20/17 11:50 Sputum Gram Stain Pending Resulted 08/20/17 11:50 Sputum Sputum Culture - Preliminary NO GROWTH AFTER 24 HOURS Resulted Laboratory Tests 08/20/17 11:00: Hemoglobin A1c 4.9, C-Reactive Protein, Quantitative 7.0H, Triglycerides Level 91, Cholesterol Level 130, LDL Cholesterol 90, HDL Cholesterol 24L, Cholesterol/ HDL Ratio 5.4H, Anti-Nuclear Antibody Screen [Pending], c-ANCA Titer [Pending], p-ANCA Titer [Pending], Coccidioides Antibody (Comp Fix) [Pending], Mycoplasma pneumoniae IgG Antibody [Pending], Mycoplasma pneumoniae IgM Ab Titer [Pending] , Aspergillus flavus Antibody [Pending], Aspergillus fumigatus Antibody [Pending ], Aspergillus niger Antibody [Pending], TB Test (T-Spot) [Pending], TB Test Nil Control (T-Spot) [Pending], TB Test Panel A (T-Spot) [Pending], TB Test Panel B (T-Spot) [Pending], TB Test Positive Control (T-Spot) [Pending] 08/20/17 11:50: Histoplasma Antigen [Pending], Urine Legionella Antigen [Pending] 08/20/17 11:51: M. tuberculosis Complex DNA (PCR) [Pending] 08/20/17 16:20: Troponin I 0.000 08/21/17 07:20: White Blood Count 12.4H, Red Blood Count 3.65L, Hemoglobin 12.1L, Hematocrit 34.7L, Mean Corpuscular Volume 95, Mean Corpuscular Hemoglobin 33.1H, Mean Corpuscular Hemoglobin Concent 34.8, Red Cell Distribution Width 10.4L, Platelet Count 292, Mean Platelet Volume 8.4, Neutrophils (%) (Auto) 67.0, Lymphocytes (%) (Auto) 23.6, Monocytes (%) (Auto) 7.7, Eosinophils (%) (Auto) 1.2, Basophils (%) (Auto) 0.5, Prothrombin Time 11.0, Prothromb Time International Ratio 1.1, Activated Partial Thromboplast Time 33, Sodium Level 137, Potassium Level 3.9, Chloride Level 105, Carbon Dioxide Level 24, Anion Gap 8, Blood Urea Nitrogen 19H, Creatinine 1.0, Estimat Glomerular Filtration Rate > 60, Glucose Level 109H, Calcium Level 8.5, Cryptococcus Antigen [Pending] Current Medications Medications (Trade) Dose Ordered Sig/Tracy Route PRN Reason Start Time Stop Time Status Last Admin Dose Admin Acetaminophen (Tylenol) 650 mg Q6H PRN ORAL Mild Pain/Temp > 100.5 08/20/17 12:45 09/19/17 12:44 08/21/17 03:38 Acetaminophen/ Hydrocodone Bitart ([place] 10/325) 1 tab Q4H PRN ORAL Moderate Pain (Pain Scale 4-6) 08/20/17 12:45 08/27/17 12:44 08/20/17 21:08 Albuterol/ Ipratropium (Albuterol/ Ipratropium) 3 ml Q4H PRN HHN Shortness of Breath 08/20/17 08:30 08/25/17 08:29 Azithromycin (Zithromax) 250 mg DAILY ORAL 08/21/17 09:00 08/28/17 23:59 08/21/17 09:09 Guaifenesin (Mucinex ER) 600 mg TWICE A DAY ORAL 08/20/17 09:00 09/19/17 08:59 08/21/17 09:09 Guaifenesin (Robitussin) 100 mg Q4H PRN ORAL For Cough 08/20/17 08:30 09/19/17 08:29 Heparin Sodium (Porcine) (Heparin 5000 units/ml) 5,000 units EVERY 12 HOURS SUBQ 08/20/17 09:00 09/19/17 08:59 08/21/17 09:11 Iopamidol (Isovue-370 150ml) 150 ml NOW PRN INJ Radiology Procedure 08/20/17 01:30 08/22/17 01:19 Lorazepam (Ativan) 2 mg Q6H PRN ORAL For Anxiety 08/20/17 12:15 08/27/17 12:14 Morphine Sulfate (Morphine Sulfate) 4 mg Q4H PRN IVP Severe Pain (Pain Scale 7-10) 08/20/17 12:45 08/27/17 12:44 Nicotine (Nicoderm) 1 patch Q24H TDERMAL 08/20/17 12:00 09/19/17 11:59 08/20/17 12:38 Piperacillin Sod/ Tazobactam Sod 3.375 gm/Sodium Chloride 110 ml @ 27.5 mls/hr EVERY 8 HOURS IVPB 08/20/17 14:00 08/25/17 13:59 08/21/17 05:55 Vancomycin HCl (Vanco rx to dose) 1 ea DAILY PRN MISC Per rx protocol 08/20/17 20:15 09/19/17 20:14 Vancomycin HCl/ Dextrose 250 ml @ 166.667 mls/hr Q12H IVPB 08/21/17 09:00 08/26/17 23:59 08/21/17 09:15 HERB TSAI M.D. August 21, 2017 09:51
[2017-08-21 12:00] VITALS: BP 109/69
--- NOTE | 2017-08-21 14:30 | Infectious Diseases Prog Note ---
Assessment/Plan Assessment/Plan A) 1) pneumonia vs neoplasm, ? cap, ? atypical, ? fungal, ? tuberculosis, ? mrsa , ? post-obstructive/anaerobic 2) ? sepsis, leukocytosis, fevers - fevers better today, leukocytosis better 3) pmh o/w negative 4) allergies - nkda, sh - + smoking, fh-nc, mar noted, notes and records noted 5) d/w RN P) 1) zosyn and vancomycin, azithromycin for now 2) check sputum cultures, check serology, f/u lab, f/u chest x-ray 3) patient refusing biopsy 4) d/w Janine Plasencia NP 5) d/w Dr. Rhodes yesterday 6) d/w patient and 7) orders noted and entered Subjective Constitutional: Reports: fever - less today ; Denies: fatigue HEENT: Reports: congestion - less Respiratory: Reports: shortness of breath - less Cardiovascular: Denies: chest pain Gastrointestinal/Abdominal: Denies: nausea, vomiting, diarrhea Genitourinary: Reports: other - no lazo ; Denies: dysuria, hematuria Neurologic: Denies: headache Psychiatric: Denies: depression Skin: Denies: rash Hematologic: Denies: bleeding Musculoskeletal: Denies: pain Allergies: Coded Allergies: No Known Allergies (Unverified , 08/19/17) Objective Vital Signs Last 24 Hour Vital Signs Date Time Temp Pulse Resp B/P (MAP) Pulse Ox O2 Delivery O2 Flow Rate FiO2 08/21/17 12:00 97.0 60 21 109/69 95 Room Air 97.0 08/21/17 10:20 93 20 Room Air 21 08/21/17 08:00 97.3 68 21 132/70 95 Room Air 97.3 08/21/17 04:37 99.1 08/21/17 04:00 100.0 88 20 115/80 96 100.0 08/21/17 03:38 100.0 08/21/17 00:00 99.5 90 22 116/69 98 99.5 08/20/17 20:37 92 18 Room Air 21 08/20/17 20:00 99.6 92 20 128/66 98 99.6 08/20/17 17:16 100.9 08/20/17 16:00 100.9 85 18 111/71 85 Room Air 100.9 Height (Feet): 5 Height (Inches): 8.00 Weight (Pounds): 182 General Appearance: no acute distress HEENT: normocephalic, atraumatic, anicteric, mucous membranes moist Respiratory/Chest: no respiratory distress, no accessory muscle use, crackles/ rales - right > left , rhonchi - bilaterally - right > left Cardiovascular: normal rate, regular rhythm, no gallop/murmur, no JVD Abdomen: normal bowel sounds, soft, non tender, no organomegaly, non distended Genitourinary: other - no lazo, no cva pain Extremities: no cyanosis Skin: no rash 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 Neoplastic versus inflammatory Hypoventilatory exam with bilateral basilar atelectasis CT chest: Impression: Suboptimal opacification of the pulmonary arteries, distal emboli could be missed. No evidence of large vessel central pulmonary embolus demonstrated 4.5 x 3.9 x 4 cm cavitary mass in the periphery of the right lower lobe. This may be either neoplastic or inflammatory. Right hilar lymphadenopathy, likely related to the above. This could likewise be neoplastic or inflammatory. Bilateral reticular interstitial and groundglass opacities. Nonspecific, suspect on the basis of pulmonary edema, but could also be infectious or noninfectious inflammatory Trace right pleural effusion Borderline cardiomegaly Very questionable cholelithiasis incidentally noted Microbiology Date/Time Source Procedure Growth Status 08/20/17 00:35 Blood Blood Culture - Preliminary NO GROWTH AFTER 24 HOURS Resulted 08/20/17 00:30 Blood Blood Culture - Preliminary NO GROWTH AFTER 24 HOURS Resulted 08/20/17 11:50 Sputum Gram Stain Pending Resulted 08/20/17 11:50 Sputum Sputum Culture - Preliminary NO GROWTH AFTER 24 HOURS Resulted 08/20/17 11:50 Sputum AFB Specimen Processing Tissue - Final Resulted 08/20/17 11:50 Sputum Acid Fast Bacilli Smear - Final Resulted 08/20/17 11:50 Sputum Acid Fast Bacilli Culture Pending Resulted Laboratory Tests Test 08/20/17 16:20 08/21/17 07:20 Troponin I 0.000 ng/mL (0.000-0.056) White Blood Count 12.4 K/UL (4.8-10.8) H Red Blood Count 3.65 M/UL (4.70-6.10) L Hemoglobin 12.1 G/DL (14.2-18.0) L Hematocrit 34.7 % (42.0-52.0) L Mean Corpuscular Volume 95 FL (80-99) Mean Corpuscular Hemoglobin 33.1 PG (27.0-31.0) H Mean Corpuscular Hemoglobin Concent 34.8 G/DL (32.0-36.0) Red Cell Distribution Width 10.4 % (11.6-14.8) L Platelet Count 292 K/UL (150-450) Mean Platelet Volume 8.4 FL (6.5-10.1) Neutrophils (%) (Auto) 67.0 % (45.0-75.0) Lymphocytes (%) (Auto) 23.6 % (20.0-45.0) Monocytes (%) (Auto) 7.7 % (1.0-10.0) Eosinophils (%) (Auto) 1.2 % (0.0-3.0) Basophils (%) (Auto) 0.5 % (0.0-2.0) Prothrombin Time 11.0 SEC (9.30-11.50) Prothromb Time International Ratio 1.1 (0.9-1.1) Activated Partial Thromboplast Time 33 SEC (23-33) Sodium Level 137 MMOL/L (136-145) Potassium Level 3.9 MMOL/L (3.5-5.1) Chloride Level 105 MMOL/L (98-107) Carbon Dioxide Level 24 MMOL/L (21-32) Anion Gap 8 mmol/L (5-15) Blood Urea Nitrogen 19 mg/dL (7-18) H Creatinine 1.0 MG/DL (0.55-1.30) Estimat Glomerular Filtration Rate > 60 mL/min (>60) Glucose Level 109 MG/DL (74-106) H Calcium Level 8.5 MG/DL (8.5-10.1) Cryptococcus Antigen Pending Current Medications Medications (Trade) Dose Ordered Sig/Tracy Route PRN Reason Start Time Stop Time Status Last Admin Dose Admin Acetaminophen (Tylenol) 650 mg Q6H PRN ORAL Mild Pain/Temp > 100.5 08/20/17 12:45 09/19/17 12:44 08/21/17 03:38 Acetaminophen/ Hydrocodone Bitart ([place] 10/325) 1 tab Q4H PRN ORAL Moderate Pain (Pain Scale 4-6) 08/20/17 12:45 08/27/17 12:44 08/20/17 21:08 Albuterol/ Ipratropium (Albuterol/ Ipratropium) 3 ml Q4H PRN HHN Shortness of Breath 08/20/17 08:30 08/25/17 08:29 Azithromycin (Zithromax) 250 mg DAILY ORAL 08/21/17 09:00 08/28/17 23:59 08/21/17 09:09 Guaifenesin (Mucinex ER) 600 mg TWICE A DAY ORAL 08/20/17 09:00 09/19/17 08:59 08/21/17 09:09 Guaifenesin (Robitussin) 100 mg Q4H PRN ORAL For Cough 08/20/17 08:30 09/19/17 08:29 Heparin Sodium (Porcine) (Heparin 5000 units/ml) 5,000 units EVERY 12 HOURS SUBQ 08/20/17 09:00 09/19/17 08:59 08/21/17 09:11 Iopamidol (Isovue-370 150ml) 150 ml NOW PRN INJ Radiology Procedure 08/20/17 01:30 08/22/17 01:19 Lorazepam (Ativan) 2 mg Q6H PRN ORAL For Anxiety 08/20/17 12:15 08/27/17 12:14 Morphine Sulfate (Morphine Sulfate) 4 mg Q4H PRN IVP Severe Pain (Pain Scale 7-10) 08/20/17 12:45 08/27/17 12:44 Nicotine (Nicoderm) 1 patch Q24H TDERMAL 08/20/17 12:00 09/19/17 11:59 08/21/17 12:27 Piperacillin Sod/ Tazobactam Sod 3.375 gm/Sodium Chloride 110 ml @ 27.5 mls/hr EVERY 8 HOURS IVPB 08/20/17 14:00 08/25/17 13:59 08/21/17 05:55 Vancomycin HCl (Vanco rx to dose) 1 ea DAILY PRN MISC Per rx protocol 08/20/17 20:15 09/19/17 20:14 Vancomycin HCl/ Dextrose 250 ml @ 166.667 mls/hr Q12H IVPB 08/21/17 09:00 08/26/17 23:59 08/21/17 09:15 RENAE WING August 21, 2017 14:30
--- NOTE | 2017-08-21 14:43 | General Progress Note ---
Assessment/Plan Problem List: (1) Tobacco abuse ICD Codes: Z72.0 - Tobacco use SNOMED: 491400504 (2) Cavitary pneumonia ICD Codes: J18.9 - Pneumonia, unspecified organism; J98.4 - Other disorders of lung SNOMED: 382167759 (3) Sepsis due to pneumonia ICD Codes: J18.9 - Pneumonia, unspecified organism; A41.9 - Sepsis, unspecified organism SNOMED: 47377841, 387943761 Status: stable, progressing Assessment/Plan - Pulmonology and ID following, appreciate rec's - IV zosyn, vancomycin, and azithromycin (D2) - AFB x 3, r/o TB - airborne precautions - f/u sputum cx - f/u blood cx - atypical serologies sent: legionella, cryptococcus, coccidio, histoplasma, mycoplasma, M. pneumoniae, Aspergillus - f/u quantiferon gold - duonebs prn - Nicotine patch - IVF - TTE 60-65% - trops negative. EKG NSR. ACS ruled out. Right-sided chest pain likely 2/2 pneumonia - lipid panel, A1c - pain and supportive care - Patient refused CT-guided bx to evaluate the mass. Patient prefers to have this done after the infection resolves. Patient agrees to have a PET/CT in 4 weeks with close f/u with Dr. Rhodes in 1-2 weeks after hospital discharge DVT Prophylaxis: SCD, HSQ Code Status: Full Hospital Classification Declaration: Based on this initial evaluation, and depending on the patient's clinical course, I anticipate that this patient will require hospitalization for 4-5 days for sepsis, atypical pneumonia and close respiratory/hemodynamic monitoring. Disposition: Once the patient is stable to leave the hospital, I anticipate the patient will likely be discharged to the following environment: home with I spent 42 minutes on this patient's case, and 22 minutes were dedicated to counseling and/or care coordination. Discussed with patient/family, nursing staff, SW/CM, ID, and passport support manager regarding clinical status, treatment course , and disposition planning. Thank you, Dr. Rhodes, for this consultation. Time of note may not reflect time of encounter. Subjective Date patient seen: August 21, 2017 Time patient seen: 11:23 Allergies: Coded Allergies: No Known Allergies (Unverified , 08/19/17) Subjective - no acute events overnight - TTE showing 60-65% EF - WBC 14-->12. Tmax 100.0 - refusing CT guided bx. states that he would like to follow the results of the serologies first prior to having the procedure done - still c/o right-sided chest pain but has improved. reports mild sob - at bedside Objective Last 24 Hour Vital Signs Date Time Temp Pulse Resp B/P (MAP) Pulse Ox O2 Delivery O2 Flow Rate FiO2 08/21/17 12:00 97.0 60 21 109/69 95 Room Air 97.0 08/21/17 10:20 93 20 Room Air 21 08/21/17 08:00 97.3 68 21 132/70 95 Room Air 97.3 08/21/17 04:37 99.1 08/21/17 04:00 100.0 88 20 115/80 96 100.0 08/21/17 03:38 100.0 08/21/17 00:00 99.5 90 22 116/69 98 99.5 08/20/17 20:37 92 18 Room Air 21 08/20/17 20:00 99.6 92 20 128/66 98 99.6 08/20/17 17:16 100.9 08/20/17 16:00 100.9 85 18 111/71 85 Room Air 100.9 Intake and Output 08/20/17 08/21/17 19:00 07:00 Intake Total 500 ml 380.0 ml Output Total 800 ml 500 ml Balance -300 ml -120.0 ml Intake Oral 500 ml 20 ml IV Total 360.0 ml Output Urine Total 800 ml 500 ml Stool Total 0 ml Laboratory Tests 08/20/17 16:20: Troponin I 0.000 08/21/17 07:20: White Blood Count 12.4H, Red Blood Count 3.65L, Hemoglobin 12.1L, Hematocrit 34.7L, Mean Corpuscular Volume 95, Mean Corpuscular Hemoglobin 33.1H, Mean Corpuscular Hemoglobin Concent 34.8, Red Cell Distribution Width 10.4L, Platelet Count 292, Mean Platelet Volume 8.4, Neutrophils (%) (Auto) 67.0, Lymphocytes (%) (Auto) 23.6, Monocytes (%) (Auto) 7.7, Eosinophils (%) (Auto) 1.2, Basophils (%) (Auto) 0.5, Prothrombin Time 11.0, Prothromb Time International Ratio 1.1, Activated Partial Thromboplast Time 33, Sodium Level 137, Potassium Level 3.9, Chloride Level 105, Carbon Dioxide Level 24, Anion Gap 8, Blood Urea Nitrogen 19H, Creatinine 1.0, Estimat Glomerular Filtration Rate > 60, Glucose Level 109H, Calcium Level 8.5, Cryptococcus Antigen [Pending] Height (Feet): 5 Height (Inches): 8.00 Weight (Pounds): 182 General Appearance: alert, mild distress EENT: PERRL/EOMI, normal ENT inspection Neck: non-tender, normal alignment, supple Cardiovascular: normal peripheral pulses, normal rate, regular rhythm Respiratory/Chest: chest wall non-tender, lungs clear, normal breath sounds Abdomen: normal bowel sounds, non tender, soft 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
[2017-08-21 16:10] VITALS: BP 117/67
--- NOTE | 2017-08-21 17:05 | Cardiology Report ---
APPROVED REPORT EKG Measurement Heart [id number] Sinus rhythm with fusion complexes Possible Left atrial enlargement Borderline ECG
[2017-08-21 20:00] VITALS: BP 111/66
[2017-08-21] MEDS: HYDROcodone/Acetamin 10/325 tab ORAL PRN (21:09)
[2017-08-22] VITALS: BP 98/63
[2017-08-22 04:00] VITALS: BP 113/73
[2017-08-22] MEDS: Piperacillin/Tazobactam 3.375 GM in NS 110 ML IVPB SCH ×3 (05:51→20:54)
[2017-08-22 08:00] VITALS: BP 99/66
[2017-08-22] MEDS: Azithromycin 250mg tab ORAL SCH (08:25)
[2017-08-22] MEDS: guaiFENesin ER 600mg tab ORAL SCH ×2 (08:25→17:35)
[2017-08-22] MEDS: HYDROcodone/Acetamin 10/325 tab ORAL PRN (08:25)
[2017-08-22] MEDS: Heparin 5000 units/ml inj SUBQ SCH ×2 (08:29→20:55)
--- NOTE | 2017-08-22 09:53 | Pulmonology Progress Note ---
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 * Extensive daily smoker * B GGO's and CM * Periorbital Xanthomas PLAN: * R/O TB with AFB x 3 * F/U sputum Cx * F/U Atypical infectious and inflammatory serologies * Mildred Whitehead & Loco (D3) per ID * PRN HHN's * Will hold off on CTGBx ----> Discussed with patient, will complete course of Abx then will get PET/CT in 4 weeks @ [facility] * Optimize pulmonary hygiene/mobilize as tolerated * Nicotine patch * Discuss tobacco cessation * Monitor volumes * Outpatient PFT's * DVT Px: Hep SQ * FC * Can F/U with me in 1-2 weeks after D/C or earlier PRN Subjective Allergies: Coded Allergies: No Known Allergies (Unverified , 08/19/17) Subjective AFVSS, stable on RA less cough, productive of yellow phlegm No F, + chills at nights, no N/VD/C Objective Last 24 Hour Vital Signs Date Time Temp Pulse Resp B/P (MAP) Pulse Ox O2 Delivery O2 Flow Rate FiO2 08/22/17 08:00 97.3 83 20 99/66 97 Room Air 97.3 08/22/17 04:00 98.8 73 20 113/73 97 98.8 08/22/17 00:00 98.3 72 20 98/63 96 98.3 08/21/17 20:00 100.3 86 20 111/66 96 100.3 08/21/17 19:56 88 20 Room Air 21 08/21/17 16:10 97.1 83 20 117/67 97 97.1 08/21/17 12:00 97.0 60 21 109/69 95 Room Air 97.0 08/21/17 10:20 93 20 Room Air 21 Intake and Output 08/21/17 08/22/17 19:00 07:00 Intake Total 517.500 ml 793.334 ml Output Total 350 ml Balance 517.500 ml 443.334 ml Intake Oral 240 ml 350 ml IV Total 277.500 ml 443.334 ml Output Urine Total 350 ml # Voids 7 # Bowel Movements 1 General Appearance: WD/WN, no acute distress HEENT: normocephalic, atraumatic, anicteric, mucous membranes moist Respiratory/Chest: rhonchi Cardiovascular: normal peripheral pulses, normal rate, regular rhythm Abdomen: normal bowel sounds, soft, non tender, no organomegaly, non distended Extremities: no cyanosis, no clubbing, no edema Microbiology Date/Time Source Procedure Growth Status 08/20/17 00:35 Blood Blood Culture - Preliminary NO GROWTH AFTER 48 HOURS Resulted 08/20/17 00:30 Blood Blood Culture - Preliminary NO GROWTH AFTER 48 HOURS Resulted 08/20/17 11:50 Sputum Gram Stain Pending Resulted 08/20/17 11:50 Sputum Sputum Culture - Preliminary NORMAL UPPER RESPIRATORY EWA AT 48 ... Resulted 08/20/17 11:50 Sputum AFB Specimen Processing Tissue - Final Resulted 08/20/17 11:50 Sputum Acid Fast Bacilli Smear - Final Resulted 08/20/17 11:50 Sputum Acid Fast Bacilli Culture Pending Resulted Laboratory Tests 08/22/17 08:00: Vancomycin Level Trough 12.6H Current Medications Medications (Trade) Dose Ordered Sig/Tracy Route PRN Reason Start Time Stop Time Status Last Admin Dose Admin Acetaminophen (Tylenol) 650 mg Q6H PRN ORAL Mild Pain/Temp > 100.5 08/20/17 12:45 09/19/17 12:44 08/21/17 03:38 Acetaminophen/ Hydrocodone Bitart ([place] 10/325) 1 tab Q4H PRN ORAL Moderate Pain (Pain Scale 4-6) 08/20/17 12:45 08/27/17 12:44 08/22/17 08:25 Albuterol/ Ipratropium (Albuterol/ Ipratropium) 3 ml Q4H PRN HHN Shortness of Breath 08/20/17 08:30 08/25/17 08:29 Azithromycin (Zithromax) 250 mg DAILY ORAL 08/21/17 09:00 08/28/17 23:59 08/22/17 08:25 Guaifenesin (Mucinex ER) 600 mg TWICE A DAY ORAL 08/20/17 09:00 09/19/17 08:59 08/22/17 08:25 Guaifenesin (Robitussin) 100 mg Q4H PRN ORAL For Cough 08/20/17 08:30 09/19/17 08:29 Heparin Sodium (Porcine) (Heparin 5000 units/ml) 5,000 units EVERY 12 HOURS SUBQ 08/20/17 09:00 09/19/17 08:59 08/22/17 08:29 Lorazepam (Ativan) 2 mg Q6H PRN ORAL For Anxiety 08/20/17 12:15 08/27/17 12:14 Morphine Sulfate (Morphine Sulfate) 4 mg Q4H PRN IVP Severe Pain (Pain Scale 7-10) 08/20/17 12:45 08/27/17 12:44 Nicotine (Nicoderm) 1 patch Q24H TDERMAL 08/20/17 12:00 09/19/17 11:59 08/21/17 12:27 Piperacillin Sod/ Tazobactam Sod 3.375 gm/Sodium Chloride 110 ml @ 27.5 mls/hr EVERY 8 HOURS IVPB 08/20/17 14:00 08/25/17 13:59 08/22/17 05:51 Vancomycin HCl (Vanco rx to dose) 1 ea DAILY PRN MISC Per rx protocol 08/20/17 20:15 09/19/17 20:14 Vancomycin HCl 1 gm/Dextrose 275 ml @ 183.708 mls/hr Q8HR@0100,0900,1700 IVPB 08/22/17 17:00 08/27/17 16:59 Vancomycin HCl/ Dextrose 250 ml @ 166.667 mls/hr Q12H IVPB 08/21/17 09:00 08/22/17 16:59 08/21/17 21:09 HERB TSAI M.D. August 22, 2017 09:53
[2017-08-22] MEDS: Vancomycin 1250mg/D5W 250ml IVPB SCH (10:38)
--- NOTE | 2017-08-22 11:18 | Diagnostic Imaging Report ---
Indication: Dyspnea Comparison: 08/20/2017 A single view chest radiograph was obtained. Findings: Cavitary lesion again demonstrated within the right midlung. Heart size is normal. No pleural effusion identified. Bones are unremarkable. IMPRESSION: Cavitary mass in the right midlung. No change
[2017-08-22 12:00] VITALS: BP 117/69
--- NOTE | 2017-08-22 14:31 | General Progress Note ---
Assessment/Plan Problem List: (1) Tobacco abuse ICD Codes: Z72.0 - Tobacco use SNOMED: 434783410 (2) Cavitary pneumonia ICD Codes: J18.9 - Pneumonia, unspecified organism; J98.4 - Other disorders of lung SNOMED: 779794287 (3) Sepsis due to pneumonia ICD Codes: J18.9 - Pneumonia, unspecified organism; A41.9 - Sepsis, unspecified organism SNOMED: 50649280, 389695239 Status: stable, progressing Assessment/Plan - Pulmonology and ID following, appreciate rec's - repeat CXR on 08/22 shows cavitary mass on right lung region, no change - s/p IV vancomycin (08/20-08/22). Continue IV zosyn and azithromycin (08/20 - ) - sputum cx no growth at 48 hours. will dc IV vancomycin per discussion with ID - AFB x 3, r/o TB. AFB #1 negative. - airborne precautions - f/u blood cx - NGTD - atypical serologies sent: legionella, cryptococcus, coccidio, histoplasma, mycoplasma, M. pneumoniae, Aspergillus - f/u quantiferon gold - duonebs prn - Nicotine patch - IVF - TTE 60-65% - trops negative. EKG NSR. ACS ruled out. Right-sided chest pain likely 2/2 pneumonia - lipid panel, A1c - pain and supportive care - Patient refused CT-guided bx to evaluate the mass. Patient prefers to have this done after the infection resolves. Patient agrees to have a PET/CT in 4 weeks with close f/u with Dr. Rhodes in 1-2 weeks after hospital discharge DVT Prophylaxis: SCD, HSQ Code Status: Full Hospital Classification Declaration: Based on this initial evaluation, and depending on the patient's clinical course, I anticipate that this patient will require hospitalization for 4-5 days for sepsis, atypical pneumonia and close respiratory/hemodynamic monitoring. Disposition: Once the patient is stable to leave the hospital, I anticipate the patient will likely be discharged to the following environment: home with I spent 41 minutes on this patient's case, and 23 minutes were dedicated to counseling and/or care coordination. Discussed with patient/family, nursing staff, SW/CM, ID, and rubber chemist regarding clinical status, treatment course , and disposition planning. Thank you, Dr. Rhodes, for this consultation. Time of note may not reflect time of encounter. Subjective Date patient seen: August 22, 2017 Time patient seen: 14:28 Allergies: Coded Allergies: No Known Allergies (Unverified , 08/19/17) Subjective - no acute events overnight - denies sob or cp - reports nausea after breakfast today. states the eggs were bad. no abdominal pain, d/c - repeat CXR today showed cavitary mass in the right lung region. no change - AM labs pending Objective Last 24 Hour Vital Signs Date Time Temp Pulse Resp B/P (MAP) Pulse Ox O2 Delivery O2 Flow Rate FiO2 08/22/17 12:00 97.3 80 20 117/69 100 Room Air 97.3 08/22/17 10:12 78 16 Room Air 21 08/22/17 08:00 97.3 83 20 99/66 97 Room Air 97.3 08/22/17 04:00 98.8 73 20 113/73 97 98.8 08/22/17 00:00 98.3 72 20 98/63 96 98.3 08/21/17 20:00 100.3 86 20 111/66 96 100.3 08/21/17 19:56 88 20 Room Air 21 08/21/17 16:10 97.1 83 20 117/67 97 97.1 Intake and Output 08/21/17 08/22/17 19:00 07:00 Intake Total 517.500 ml 793.334 ml Output Total 350 ml Balance 517.500 ml 443.334 ml Intake Oral 240 ml 350 ml IV Total 277.500 ml 443.334 ml Output Urine Total 350 ml # Voids 7 # Bowel Movements 1 Laboratory Tests 08/22/17 08:00: Vancomycin Level Trough 12.6H Height (Feet): 5 Height (Inches): 8.00 Weight (Pounds): 182 General Appearance: no apparent distress, alert EENT: PERRL/EOMI, normal ENT inspection Neck: non-tender, normal alignment, supple Cardiovascular: normal peripheral pulses, normal rate, regular rhythm Respiratory/Chest: chest wall non-tender, lungs clear, normal breath sounds Abdomen: normal bowel sounds, non tender, soft Extremities: normal range of motion, non-tender 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
--- NOTE | 2017-08-22 15:07 | Infectious Diseases Prog Note ---
Assessment/Plan Assessment/Plan A) 1) pneumonia, ? neoplasm, ? cap, ? atypical, ? fungal, ? tuberculosis,? post- obstructive/anaerobic - clinically better, no sob, less fevers - leukocytosis and fevers better - tb-spot negative - awaiting decision for biopsy 2) ? sepsis, leukocytosis, fevers - fevers and leukocytosis better 3) pmh o/w negative 4) allergies - nkda, sh - + smoking, fh-nc, mar noted, notes and records noted 5) d/w RN P) 1) zosyn and azithromycin, discontinue vancomycin since no mrsa growing out 2) check sputum cultures final, check serology, f/u lab, f/u chest x-ray, check afb/cultures, await tb pcr 3) patient refusing biopsy for now, awaiting final decision 4) d/w Janine Plasencia NP 5) d/w patient and daughter 6) orders noted and entered Subjective Constitutional: Reports: fatigue, other - lgt only ; Denies: fever HEENT: Denies: congestion Respiratory: Denies: shortness of breath Cardiovascular: Denies: chest pain Gastrointestinal/Abdominal: Denies: nausea, vomiting, diarrhea Genitourinary: Denies: dysuria, hematuria Neurologic: Denies: headache Psychiatric: Denies: no symptoms, depression Skin: Denies: rash Hematologic: Denies: bleeding Musculoskeletal: Denies: pain Allergies: Coded Allergies: No Known Allergies (Unverified , 08/19/17) Objective Vital Signs Last 24 Hour Vital Signs Date Time Temp Pulse Resp B/P (MAP) Pulse Ox O2 Delivery O2 Flow Rate FiO2 08/22/17 12:00 97.3 80 20 117/69 100 Room Air 97.3 08/22/17 10:12 78 16 Room Air 21 08/22/17 08:00 97.3 83 20 99/66 97 Room Air 97.3 08/22/17 04:00 98.8 73 20 113/73 97 98.8 08/22/17 00:00 98.3 72 20 98/63 96 98.3 08/21/17 20:00 100.3 86 20 111/66 96 100.3 08/21/17 19:56 88 20 Room Air 21 08/21/17 16:10 97.1 83 20 117/67 97 97.1 Height (Feet): 5 Height (Inches): 8.00 Weight (Pounds): 182 General Appearance: no acute distress HEENT: normocephalic, atraumatic, anicteric, mucous membranes moist Respiratory/Chest: no respiratory distress, no accessory muscle use, crackles/ rales, rhonchi - bilaterally, other - clearer bilateral Cardiovascular: normal rate, regular rhythm, no gallop/murmur, no JVD Abdomen: normal bowel sounds, soft, non tender, no organomegaly, non distended Genitourinary: other - no lazo Extremities: no cyanosis Skin: no rash Neurologic/Psychiatric: disc pad plate filler II-XII grossly normal, alert, oriented x 3, responsive Lymphatic: no neck adenopathy Musculoskeletal: no effusion Objective Chest x-ray - 08/20 - Impression: Right midlung mass with subtle central cavitation, also described on subsequent chest CT. Neoplastic versus inflammatory Hypoventilatory exam with bilateral basilar atelectasis CT chest: Impression: Suboptimal opacification of the pulmonary arteries, distal emboli could be missed. No evidence of large vessel central pulmonary embolus demonstrated 4.5 x 3.9 x 4 cm cavitary mass in the periphery of the right lower lobe. This may be either neoplastic or inflammatory. Right hilar lymphadenopathy, likely related to the above. This could likewise be neoplastic or inflammatory. Bilateral reticular interstitial and groundglass opacities. Nonspecific, suspect on the basis of pulmonary edema, but could also be infectious or noninfectious inflammatory Trace right pleural effusion Borderline cardiomegaly Very questionable cholelithiasis incidentally noted Microbiology Date/Time Source Procedure Growth Status 08/20/17 00:35 Blood Blood Culture - Preliminary NO GROWTH AFTER 48 HOURS Resulted 08/20/17 00:30 Blood Blood Culture - Preliminary NO GROWTH AFTER 48 HOURS Resulted 08/20/17 11:50 Sputum Gram Stain - Final Resulted 08/20/17 11:50 Sputum Sputum Culture - Preliminary NORMAL UPPER RESPIRATORY EWA AT 48 ... Resulted 08/20/17 11:50 Sputum AFB Specimen Processing Tissue - Final Resulted 08/20/17 11:50 Sputum Acid Fast Bacilli Smear - Final Resulted 08/20/17 11:50 Sputum Acid Fast Bacilli Culture Pending Resulted Labs Test 08/20/17 00:30 08/20/17 01:55 08/20/17 08:16 08/20/17 11:00 White Blood Count 14.6 K/UL (4.8-10.8) Red Blood Count 4.21 M/UL (4.70-6.10) Hemoglobin 13.9 G/DL (14.2-18.0) Hematocrit 40.1 % (42.0-52.0) Mean Corpuscular Volume 95 FL (80-99) Mean Corpuscular Hemoglobin 33.1 PG (27.0-31.0) Mean Corpuscular Hemoglobin Concent 34.7 G/DL (32.0-36.0) Red Cell Distribution Width 10.5 % (11.6-14.8) Platelet Count 320 K/UL (150-450) Mean Platelet Volume 8.0 FL (6.5-10.1) Neutrophils (%) (Auto) 74.2 % (45.0-75.0) Lymphocytes (%) (Auto) 16.6 % (20.0-45.0) Monocytes (%) (Auto) 7.6 % (1.0-10.0) Eosinophils (%) (Auto) 0.9 % (0.0-3.0) Basophils (%) (Auto) 0.7 % (0.0-2.0) Sodium Level 138 MMOL/L (136-145) Potassium Level 4.3 MMOL/L (3.5-5.1) Chloride Level 104 MMOL/L (98-107) Carbon Dioxide Level 23 MMOL/L (21-32) Anion Gap 11 mmol/L (5-15) Blood Urea Nitrogen 24 mg/dL (7-18) Creatinine 1.0 MG/DL (0.55-1.30) Estimat Glomerular Filtration Rate > 60 mL/min (>60) Glucose Level 123 MG/DL (74-106) Lactic Acid Level 1.10 mmol/L (0.66-2.22) Calcium Level 9.1 MG/DL (8.5-10.1) Total Bilirubin 0.6 MG/DL (0.2-1.0) Aspartate Amino Transf (AST/SGOT) 21 U/L (15-37) Alanine Aminotransferase (ALT/SGPT) 24 U/L (12-78) Alkaline Phosphatase 77 U/L (46-116) Total Creatine Kinase 45 U/L (26-308) Creatine Kinase MB 0.5 NG/ML (0.0-3.6) Creatine Kinase MB Relative Index 1.1 Troponin I 0.000 ng/mL (0.000-0.056) Total Protein 7.9 G/DL (6.4-8.2) Albumin 3.4 G/DL (3.4-5.0) Globulin 4.5 g/dL Albumin/Globulin Ratio 0.8 (1.0-2.7) Urine Color Yellow Urine Appearance Clear Urine pH 5 (4.5-8.0) Urine Specific [place] 1.020 (1.005-1.035) Urine Protein Negative (NEGATIVE) Urine Glucose (UA) Negative (NEGATIVE) Urine Ketones Negative (NEGATIVE) Urine Occult Blood Negative (NEGATIVE) Urine Nitrite Negative (NEGATIVE) Urine Bilirubin Negative (NEGATIVE) Urine Urobilinogen Normal MG/DL (0.0-1.0) Urine Leukocyte Esterase Negative (NEGATIVE) Erythrocyte Sedimentation Rate 63 MM/HR (0-20) Hemoglobin A1c 4.9 % (4.3-6.0) C-Reactive Protein, Quantitative 7.0 mg/dL (0.00-0.90) Triglycerides Level 91 MG/DL (30-150) Cholesterol Level 130 MG/DL (< 200) LDL Cholesterol 90 mg/dL (<100) HDL Cholesterol 24 MG/DL (40-60) Cholesterol/HDL Ratio 5.4 (3.3-4.4) Anti-Nuclear Antibody Screen Negative (Negative) TB Test (T-Spot) Negative TB Test Nil Control (T-Spot) 0 TB Test Panel A (T-Spot) 0 TB Test Panel B (T-Spot) 0 TB Test Positive Control (T-Spot) 0 Test 08/20/17 11:50 08/20/17 11:51 08/20/17 16:20 08/21/17 07:20 Troponin I 0.000 ng/mL (0.000-0.056) White Blood Count 12.4 K/UL (4.8-10.8) Red Blood Count 3.65 M/UL (4.70-6.10) Hemoglobin 12.1 G/DL (14.2-18.0) Hematocrit 34.7 % (42.0-52.0) Mean Corpuscular Volume 95 FL (80-99) Mean Corpuscular Hemoglobin 33.1 PG (27.0-31.0) Mean Corpuscular Hemoglobin Concent 34.8 G/DL (32.0-36.0) Red Cell Distribution Width 10.4 % (11.6-14.8) Platelet Count 292 K/UL (150-450) Mean Platelet Volume 8.4 FL (6.5-10.1) Neutrophils (%) (Auto) 67.0 % (45.0-75.0) Lymphocytes (%) (Auto) 23.6 % (20.0-45.0) Monocytes (%) (Auto) 7.7 % (1.0-10.0) Eosinophils (%) (Auto) 1.2 % (0.0-3.0) Basophils (%) (Auto) 0.5 % (0.0-2.0) Prothrombin Time 11.0 SEC (9.30-11.50) Prothromb Time International Ratio 1.1 (0.9-1.1) Activated Partial Thromboplast Time 33 SEC (23-33) Sodium Level 137 MMOL/L (136-145) Potassium Level 3.9 MMOL/L (3.5-5.1) Chloride Level 105 MMOL/L (98-107) Carbon Dioxide Level 24 MMOL/L (21-32) Anion Gap 8 mmol/L (5-15) Blood Urea Nitrogen 19 mg/dL (7-18) Creatinine 1.0 MG/DL (0.55-1.30) Estimat Glomerular Filtration Rate > 60 mL/min (>60) Glucose Level 109 MG/DL (74-106) Calcium Level 8.5 MG/DL (8.5-10.1) Test 08/22/17 08:00 Vancomycin Level Trough 12.6 ug/mL (5.0-12.0) Laboratory Tests Test 08/22/17 08:00 Vancomycin Level Trough 12.6 ug/mL (5.0-12.0) H Current Medications Medications (Trade) Dose Ordered Sig/Tracy Route PRN Reason Start Time Stop Time Status Last Admin Dose Admin Acetaminophen (Tylenol) 650 mg Q6H PRN ORAL Mild Pain/Temp > 100.5 08/20/17 12:45 09/19/17 12:44 08/21/17 03:38 Acetaminophen/ Hydrocodone Bitart ([place] 10/325) 1 tab Q4H PRN ORAL Moderate Pain (Pain Scale 4-6) 08/20/17 12:45 08/27/17 12:44 08/22/17 08:25 Albuterol/ Ipratropium (Albuterol/ Ipratropium) 3 ml Q4H PRN HHN Shortness of Breath 08/20/17 08:30 08/25/17 08:29 Azithromycin (Zithromax) 250 mg DAILY ORAL 08/21/17 09:00 08/28/17 23:59 08/22/17 08:25 Guaifenesin (Mucinex ER) 600 mg TWICE A DAY ORAL 08/20/17 09:00 09/19/17 08:59 08/22/17 08:25 Guaifenesin (Robitussin) 100 mg Q4H PRN ORAL For Cough 08/20/17 08:30 09/19/17 08:29 Heparin Sodium (Porcine) (Heparin 5000 units/ml) 5,000 units EVERY 12 HOURS SUBQ 08/20/17 09:00 09/19/17 08:59 08/22/17 08:29 Lorazepam (Ativan) 2 mg Q6H PRN ORAL For Anxiety 08/20/17 12:15 08/27/17 12:14 Morphine Sulfate (Morphine Sulfate) 4 mg Q4H PRN IVP Severe Pain (Pain Scale 7-10) 08/20/17 12:45 08/27/17 12:44 Nicotine (Nicoderm) 1 patch Q24H TDERMAL 08/20/17 12:00 09/19/17 11:59 08/22/17 11:17 Ondansetron HCl (Zofran) 4 mg Q6H PRN IVP Nausea & Vomiting 08/22/17 13:43 09/21/17 13:42 08/22/17 13:51 Piperacillin Sod/ Tazobactam Sod 3.375 gm/Sodium Chloride 110 ml @ 27.5 mls/hr EVERY 8 HOURS IVPB 08/20/17 14:00 08/25/17 13:59 08/22/17 13:51 RENAE WING August 22, 2017 15:07
[2017-08-22 16:00] VITALS: BP 96/63
[2017-08-22] MEDS ORDERED: Vancomycin 1gm/D5W 275ml IVPB SCH ×2 (17:00)
[2017-08-22 20:00] VITALS: BP 114/69
[2017-08-23] VITALS: BP 129/71
[2017-08-23 04:00] VITALS: BP 116/66
[2017-08-23] MEDS: Piperacillin/Tazobactam 3.375 GM in NS 110 ML IVPB SCH ×3 (05:56→21:52)
[2017-08-23 08:00] VITALS: BP 100/65
[2017-08-23] MEDS: Azithromycin 250mg tab ORAL SCH (08:51)
[2017-08-23] MEDS: guaiFENesin ER 600mg tab ORAL SCH ×2 (08:51→17:15)
--- NOTE | 2017-08-23 08:58 | Pulmonology Progress Note ---
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 * Extensive daily smoker * B GGO's and CM * Periorbital Xanthomas PLAN: * R/O TB with AFB x 3 * F/U sputum Cx * F/U Atypical infectious and inflammatory serologies * Zosyn (D4) per ID * PRN HHN's * Will hold off on CTGBx ----> Discussed with patient, will complete course of Abx then will get PET/CT in 4 weeks @ [facility] * Optimize pulmonary hygiene/mobilize as tolerated * Nicotine patch * Discuss tobacco cessation * Monitor volumes * Outpatient PFT's * DVT Px: Hep SQ * FC * Can F/U with me in 1-2 weeks after D/C or earlier PRN Subjective Allergies: Coded Allergies: No Known Allergies (Unverified , 08/19/17) Subjective AFVSS, stable on RA less cough, productive of yellow phlegm No F, less chills at nights, no N/VD/C Objective Last 24 Hour Vital Signs Date Time Temp Pulse Resp B/P (MAP) Pulse Ox O2 Delivery O2 Flow Rate FiO2 08/23/17 08:31 84 18 Room Air 21 08/23/17 04:00 98.9 73 20 116/66 96 98.9 08/23/17 00:00 99.0 83 20 129/71 98 99.0 08/22/17 20:00 98.9 82 20 114/69 95 98.9 08/22/17 19:30 82 20 Room Air 21 08/22/17 16:00 98.0 75 20 96/63 97 Room Air 98.0 08/22/17 12:00 97.3 80 20 117/69 100 Room Air 97.3 08/22/17 10:12 78 16 Room Air 21 Intake and Output 08/22/17 08/23/17 19:00 07:00 Intake Total 350.0 ml 10 ml Balance 350.0 ml 10 ml Intake Oral 240 ml 10 ml IV Total 110.0 ml # Voids 1 # Bowel Movements 1 General Appearance: WD/WN, no acute distress HEENT: normocephalic, atraumatic, anicteric, mucous membranes moist Respiratory/Chest: chest wall non-tender, lungs clear, normal breath sounds, no respiratory distress Cardiovascular: normal peripheral pulses, normal rate, regular rhythm Abdomen: normal bowel sounds, soft, non tender, no organomegaly, non distended Extremities: no cyanosis, no clubbing, no edema Microbiology Date/Time Source Procedure Growth Status 08/20/17 11:50 Sputum Gram Stain - Final Complete 08/20/17 11:50 Sputum Sputum Culture - Final NORMAL UPPER RESPIRATORY EWA PRESENT Complete 08/20/17 11:50 Sputum AFB Specimen Processing Tissue - Final Resulted 08/20/17 11:50 Sputum Acid Fast Bacilli Smear - Final Resulted 08/20/17 11:50 Sputum Acid Fast Bacilli Culture Pending Resulted Current Medications Medications (Trade) Dose Ordered Sig/Tracy Route PRN Reason Start Time Stop Time Status Last Admin Dose Admin Acetaminophen (Tylenol) 650 mg Q6H PRN ORAL Mild Pain/Temp > 100.5 08/20/17 12:45 09/19/17 12:44 08/21/17 03:38 Acetaminophen/ Hydrocodone Bitart ([place] 10/325) 1 tab Q4H PRN ORAL Moderate Pain (Pain Scale 4-6) 08/20/17 12:45 08/27/17 12:44 08/22/17 08:25 Albuterol/ Ipratropium (Albuterol/ Ipratropium) 3 ml Q4H PRN HHN Shortness of Breath 08/20/17 08:30 08/25/17 08:29 Azithromycin (Zithromax) 250 mg DAILY ORAL 08/21/17 09:00 08/28/17 23:59 08/22/17 08:25 Guaifenesin (Mucinex ER) 600 mg TWICE A DAY ORAL 08/20/17 09:00 09/19/17 08:59 08/22/17 17:35 Guaifenesin (Robitussin) 100 mg Q4H PRN ORAL For Cough 08/20/17 08:30 09/19/17 08:29 Heparin Sodium (Porcine) (Heparin 5000 units/ml) 5,000 units EVERY 12 HOURS SUBQ 08/20/17 09:00 09/19/17 08:59 08/22/17 20:55 Lorazepam (Ativan) 2 mg Q6H PRN ORAL For Anxiety 08/20/17 12:15 08/27/17 12:14 Morphine Sulfate (Morphine Sulfate) 4 mg Q4H PRN IVP Severe Pain (Pain Scale 7-10) 08/20/17 12:45 08/27/17 12:44 Nicotine (Nicoderm) 1 patch Q24H TDERMAL 08/20/17 12:00 09/19/17 11:59 08/22/17 11:17 Ondansetron HCl (Zofran) 4 mg Q6H PRN IVP Nausea & Vomiting 08/22/17 13:43 09/21/17 13:42 08/22/17 13:51 Piperacillin Sod/ Tazobactam Sod 3.375 gm/Sodium Chloride 110 ml @ 27.5 mls/hr EVERY 8 HOURS IVPB 08/20/17 14:00 08/25/17 13:59 08/23/17 05:56 HERB TSAI M.D. August 23, 2017 08:58
[2017-08-23] MEDS: Heparin 5000 units/ml inj SUBQ SCH ×2 (09:03→21:54)
[2017-08-23 10:30] LABS: BASOPHILS % (AUTO) 0.7 % (0.0-2.0); EOSINOPHILS % (AUTO) 2.3 % (0.0-3.0); HEMATOCRIT 36.8 % (42.0-52.0); HEMOGLOBIN 12.3 G/DL (14.2-18.0); LYMPHOCYTES % (AUTO) 26.3 % (20.0-45.0); MEAN CORPUSCULAR VOLUME 96 FL (80-99); MONOCYTES % (AUTO) 7.1 % (1.0-10.0); NEUTROPHILS % (AUTO) 63.6 % (45.0-75.0); PLATELET COUNT 346 K/UL (150-450); RED BLOOD COUNT 3.85 M/UL (4.70-6.10); RED CELL DISTRIBUTION WIDTH 10.3 % (11.6-14.8); WHITE BLOOD COUNT 8.1 K/UL (4.8-10.8)
[2017-08-23 10:33] LABS: ANION GAP 6 mmol/L (5-15); BLOOD UREA NITROGEN 15 mg/dL (7-18); CALCIUM 8.9 MG/DL (8.5-10.1); CARBON DIOXIDE 28 MMOL/L (21-32); CHLORIDE 105 MMOL/L (98-107); CREATININE 1.3 MG/DL (0.55-1.30); POTASSIUM 3.8 MMOL/L (3.5-5.1); SODIUM 138 MMOL/L (136-145)
[2017-08-23 12:00] VITALS: BP 123/66
--- NOTE | 2017-08-23 15:31 | General Progress Note ---
Assessment/Plan Problem List: (1) Tobacco abuse ICD Codes: Z72.0 - Tobacco use SNOMED: 985218853 (2) Cavitary pneumonia ICD Codes: J18.9 - Pneumonia, unspecified organism; J98.4 - Other disorders of lung SNOMED: 766279413 (3) Sepsis due to pneumonia ICD Codes: J18.9 - Pneumonia, unspecified organism; A41.9 - Sepsis, unspecified organism SNOMED: 69239449, 581413746 Status: stable, progressing Assessment/Plan - Pulmonology and ID following, appreciate rec's - repeat CXR on 08/22 shows cavitary mass on right lung region, no change - s/p IV vancomycin (08/20-08/22). Continue IV zosyn and azithromycin (08/20 - ) - sputum cx no growth at 48 hours. will dc IV vancomycin per discussion with ID - AFB x 3, r/o TB. AFB #1 negative. Pending #2 and #3. - airborne precautions - f/u blood cx - NGTD - atypical serologies sent: legionella, cryptococcus, coccidio, histoplasma, mycoplasma, M. pneumoniae, Aspergillus - f/u quantiferon gold -- negative - duonebs prn - Nicotine patch - IVF - TTE 60-65% - trops negative. EKG NSR. ACS ruled out. Right-sided chest pain likely 2/2 pneumonia - lipid panel, A1c - pain and supportive care - Patient refused CT-guided bx to evaluate the mass. Patient prefers to have this done after the infection resolves. Patient agrees to have a PET/CT in 4 weeks with close f/u with Dr. Rhodes in 1-2 weeks after hospital discharge - DISCHARGE PENDING THREE NEGATIVE AFB SMEARS. DVT Prophylaxis: SCD, HSQ Code Status: Full Hospital Classification Declaration: Based on this initial evaluation, and depending on the patient's clinical course, I anticipate that this patient will require hospitalization for 4-5 days for sepsis, atypical pneumonia and close respiratory/hemodynamic monitoring. Disposition: Once the patient is stable to leave the hospital, I anticipate the patient will likely be discharged to the following environment: home with HH I spent 41 minutes on this patient's case, and 23 minutes were dedicated to counseling and/or care coordination. Discussed with patient/family, nursing staff, SW/CM, ID, and duplex trimmer regarding clinical status, treatment course , and disposition planning. Thank you, Dr. Rhodes, for this consultation. Time of note may not reflect time of encounter. Subjective Date patient seen: August 23, 2017 Time patient seen: 11:00 Allergies: Coded Allergies: No Known Allergies (Unverified , 08/19/17) Subjective - no acute events overnight - AFB smears pending #2 and #3 - patient frustrated and requesting to go home - denies sob, cp. AF, HDS Objective Last 24 Hour Vital Signs Date Time Temp Pulse Resp B/P (MAP) Pulse Ox O2 Delivery O2 Flow Rate FiO2 08/23/17 12:00 98.0 78 20 123/66 97 98.0 08/23/17 08:31 84 18 Room Air 21 08/23/17 08:00 97.2 80 20 100/65 96 97.2 08/23/17 04:00 98.9 73 20 116/66 96 98.9 08/23/17 00:00 99.0 83 20 129/71 98 99.0 08/22/17 20:00 98.9 82 20 114/69 95 98.9 08/22/17 19:30 82 20 Room Air 21 08/22/17 16:00 98.0 75 20 96/63 97 Room Air 98.0 Intake and Output 08/22/17 08/23/17 19:00 07:00 Intake Total 350.0 ml 37.5 ml Balance 350.0 ml 37.5 ml Intake Oral 240 ml 10 ml IV Total 110.0 ml 27.5 ml # Voids 1 # Bowel Movements 1 Laboratory Tests 08/23/17 10:00: White Blood Count 8.1, Red Blood Count 3.85L, Hemoglobin 12.3L, Hematocrit 36.8L , Mean Corpuscular Volume 96, Mean Corpuscular Hemoglobin 32.0H, Mean Corpuscular Hemoglobin Concent 33.5, Red Cell Distribution Width 10.3L, Platelet Count 346, Mean Platelet Volume 7.4, Neutrophils (%) (Auto) 63.6, Lymphocytes (%) (Auto) 26.3, Monocytes (%) (Auto) 7.1, Eosinophils (%) (Auto) 2.3, Basophils (%) (Auto) 0.7, Sodium Level 138, Potassium Level 3.8, Chloride Level 105, Carbon Dioxide Level 28, Anion Gap 6, Blood Urea Nitrogen 15, Creatinine 1.3, Estimat Glomerular Filtration Rate 57.5, Glucose Level 149H, Calcium Level 8.9, HIV (1&2) Antibody Rapid Negative Height (Feet): 5 Height (Inches): 8.00 Weight (Pounds): 182 General Appearance: no apparent distress, alert EENT: PERRL/EOMI, normal ENT inspection Neck: non-tender, normal alignment, supple Cardiovascular: normal peripheral pulses, normal rate, regular rhythm Respiratory/Chest: chest wall non-tender, lungs clear, normal breath sounds Abdomen: normal bowel sounds, non tender, soft Extremities: normal range of motion, non-tender 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
[2017-08-23 16:00] VITALS: BP 98/70
--- NOTE | 2017-08-23 19:28 | Infectious Diseases Prog Note ---
Assessment/Plan Assessment/Plan A) 1) pneumonia, ? neoplasm, ? cap, ? atypical, ? fungal, ? tuberculosis,? post- obstructive/anaerobic - clinically better, no sob - leukocytosis and fevers better - tb-spot negative, afb smear negative x 3, tb pcr pending/ - low suspicion for tuberculosis - mycoplasma igm negative, legionella urine antigen negative 2) ? sepsis, leukocytosis, fevers - fevers and leukocytosis better 3) pmh o/w negative 4) allergies - nkda, sh - + smoking, fh-nc, mar noted, notes and records noted 5) d/w RN P) 1) zosyn - day # 4 abx, discontinue azithromycin 2) consider discharge on oral augmentin upon discharge, plan on 10 day total of abx since severe pna 3) no biopsy for now, f/u ct in future, f/u on labs and serology, check tuberculosis pcr 4) d/w Dr. Rhodes 5) d/w Janine Plasencia, 6) orders noted and entered 7) d/w with ICP 8) consider discontinue isolation, low suspicion for tuberculosis pna, afb smear negative x 3, t-spot negative - will d/w primary care and pulmonary Subjective Constitutional: Reports: fatigue; Denies: fever HEENT: Denies: congestion Respiratory: Denies: shortness of breath Cardiovascular: Denies: chest pain Gastrointestinal/Abdominal: Denies: nausea, vomiting, diarrhea Genitourinary: Denies: dysuria Neurologic: Denies: headache Psychiatric: Denies: depression Skin: Denies: rash Hematologic: Denies: bleeding Musculoskeletal: Denies: pain Allergies: Coded Allergies: No Known Allergies (Unverified , 08/19/17) Objective Vital Signs Last 24 Hour Vital Signs Date Time Temp Pulse Resp B/P (MAP) Pulse Ox O2 Delivery O2 Flow Rate FiO2 08/23/17 16:00 97.7 78 20 98/70 97 97.7 08/23/17 12:00 98.0 78 20 123/66 97 98.0 08/23/17 08:31 84 18 Room Air 21 08/23/17 08:00 97.2 80 20 100/65 96 97.2 08/23/17 04:00 98.9 73 20 116/66 96 98.9 08/23/17 00:00 99.0 83 20 129/71 98 99.0 08/22/17 20:00 98.9 82 20 114/69 95 98.9 08/22/17 19:30 82 20 Room Air 21 Height (Feet): 5 Height (Inches): 8.00 Weight (Pounds): 182 General Appearance: no acute distress HEENT: normocephalic, atraumatic, anicteric, mucous membranes moist Respiratory/Chest: no respiratory distress, no accessory muscle use, crackles/ rales - few, right > left Cardiovascular: normal rate, regular rhythm, no gallop/murmur, no JVD Abdomen: normal bowel sounds, soft, non tender, no organomegaly, non distended Genitourinary: other - no lazo Extremities: no cyanosis Skin: no rash Neurologic/Psychiatric: test man II-XII grossly normal, no motor/sensory deficits, alert, oriented x 3, responsive Lymphatic: no neck adenopathy Musculoskeletal: no effusion Objective Chest x-ray - 08/20 - Impression: Right midlung mass with subtle central cavitation, also described on subsequent chest CT. Neoplastic versus inflammatory Hypoventilatory exam with bilateral basilar atelectasis CT chest: Impression: Suboptimal opacification of the pulmonary arteries, distal emboli could be missed. No evidence of large vessel central pulmonary embolus demonstrated 4.5 x 3.9 x 4 cm cavitary mass in the periphery of the right lower lobe. This may be either neoplastic or inflammatory. Right hilar lymphadenopathy, likely related to the above. This could likewise be neoplastic or inflammatory. Bilateral reticular interstitial and groundglass opacities. Nonspecific, suspect on the basis of pulmonary edema, but could also be infectious or noninfectious inflammatory Trace right pleural effusion, cm, ? cholelithiasis Chest x-ray - 08/22 - Findings: Cavitary lesion again demonstrated within the right midlung. Heart size is normal. No pleural effusion identified. Bones are unremarkable. IMPRESSION: Cavitary mass in the right midlung. No change Microbiology Date/Time Source Procedure Growth Status 08/22/17 06:30 Sputum AFB Specimen Processing Tissue - Final Resulted 08/22/17 06:30 Sputum Acid Fast Bacilli Smear - Final Resulted 08/22/17 06:30 Sputum Acid Fast Bacilli Culture Pending Resulted 08/21/17 06:00 Sputum Not Specified AFB Specimen Processing Tissue - Final Resulted 08/21/17 06:00 Sputum Not Specified Acid Fast Bacilli Smear - Final Resulted 08/21/17 06:00 Sputum Not Specified Acid Fast Bacilli Culture Pending Resulted Laboratory Tests Test 08/23/17 10:00 White Blood Count 8.1 K/UL (4.8-10.8) Red Blood Count 3.85 M/UL (4.70-6.10) L Hemoglobin 12.3 G/DL (14.2-18.0) L Hematocrit 36.8 % (42.0-52.0) L Mean Corpuscular Volume 96 FL (80-99) Mean Corpuscular Hemoglobin 32.0 PG (27.0-31.0) H Mean Corpuscular Hemoglobin Concent 33.5 G/DL (32.0-36.0) Red Cell Distribution Width 10.3 % (11.6-14.8) L Platelet Count 346 K/UL (150-450) Mean Platelet Volume 7.4 FL (6.5-10.1) Neutrophils (%) (Auto) 63.6 % (45.0-75.0) Lymphocytes (%) (Auto) 26.3 % (20.0-45.0) Monocytes (%) (Auto) 7.1 % (1.0-10.0) Eosinophils (%) (Auto) 2.3 % (0.0-3.0) Basophils (%) (Auto) 0.7 % (0.0-2.0) Sodium Level 138 MMOL/L (136-145) Potassium Level 3.8 MMOL/L (3.5-5.1) Chloride Level 105 MMOL/L (98-107) Carbon Dioxide Level 28 MMOL/L (21-32) Anion Gap 6 mmol/L (5-15) Blood Urea Nitrogen 15 mg/dL (7-18) Creatinine 1.3 MG/DL (0.55-1.30) Estimat Glomerular Filtration Rate 57.5 mL/min (>60) Glucose Level 149 MG/DL (74-106) H Calcium Level 8.9 MG/DL (8.5-10.1) HIV (1&2) Antibody Rapid Negative (NEGATIVE) Current Medications Medications (Trade) Dose Ordered Sig/Tracy Route PRN Reason Start Time Stop Time Status Last Admin Dose Admin Acetaminophen (Tylenol) 650 mg Q6H PRN ORAL Mild Pain/Temp > 100.5 5/22/18 12:45 09/19/17 12:44 08/21/17 03:38 Acetaminophen/ Hydrocodone Bitart ([place] 10/325) 1 tab Q4H PRN ORAL Moderate Pain (Pain Scale 4-6) 08/20/17 12:45 08/27/17 12:44 08/22/17 08:25 Albuterol/ Ipratropium (Albuterol/ Ipratropium) 3 ml Q4H PRN HHN Shortness of Breath 08/20/17 08:30 08/25/17 08:29 Guaifenesin (Mucinex ER) 600 mg TWICE A DAY ORAL 08/20/17 09:00 09/19/17 08:59 08/23/17 17:15 Guaifenesin (Robitussin) 100 mg Q4H PRN ORAL For Cough 08/20/17 08:30 09/19/17 08:29 Heparin Sodium (Porcine) (Heparin 5000 units/ml) 5,000 units EVERY 12 HOURS SUBQ 08/20/17 09:00 09/19/17 08:59 08/23/17 09:03 Lorazepam (Ativan) 2 mg Q6H PRN ORAL For Anxiety 08/20/17 12:15 08/27/17 12:14 Morphine Sulfate (Morphine Sulfate) 4 mg Q4H PRN IVP Severe Pain (Pain Scale 7-10) 08/20/17 12:45 08/27/17 12:44 Nicotine (Nicoderm) 1 patch Q24H TDERMAL 08/20/17 12:00 09/19/17 11:59 08/23/17 12:52 Ondansetron HCl (Zofran) 4 mg Q6H PRN IVP Nausea & Vomiting 08/22/17 13:43 09/21/17 13:42 08/22/17 13:51 Piperacillin Sod/ Tazobactam Sod 3.375 gm/Sodium Chloride 110 ml @ 27.5 mls/hr EVERY 8 HOURS IVPB 08/20/17 14:00 08/25/17 13:59 08/23/17 14:34 Harsha Diez MD August 23, 2017 19:28
[2017-08-23 20:00] VITALS: BP 112/68
[2017-08-24] VITALS: BP 113/70
[2017-08-24 04:00] VITALS: BP_SYST 114; BP_SYST 149; BP_DIAS 70; BP_DIAS 84
[2017-08-24] MEDS: Piperacillin/Tazobactam 3.375 GM in NS 110 ML IVPB SCH ×3 (05:36→21:33)
[2017-08-24 08:00] VITALS: BP 107/72
[2017-08-24] MEDS: guaiFENesin ER 600mg tab ORAL SCH ×2 (08:32→17:29)
[2017-08-24] MEDS: Heparin 5000 units/ml inj SUBQ SCH ×2 (08:33→21:42)
[2017-08-24] MEDS ORDERED: Tubing IV Secondary IV ONE (10:51)
[2017-08-24] MEDS ORDERED: NS 500ML ONE (10:51)
[2017-08-24 11:02] LABS: BASOPHILS % (AUTO) 0.5 % (0.0-2.0); EOSINOPHILS % (AUTO) 1.8 % (0.0-3.0); HEMATOCRIT 37.6 % (42.0-52.0); HEMOGLOBIN 12.7 G/DL (14.2-18.0); LYMPHOCYTES % (AUTO) 25.7 % (20.0-45.0); MEAN CORPUSCULAR VOLUME 95 FL (80-99); MONOCYTES % (AUTO) 6.2 % (1.0-10.0); NEUTROPHILS % (AUTO) 65.9 % (45.0-75.0); PLATELET COUNT 362 K/UL (150-450); RED BLOOD COUNT 3.98 M/UL (4.70-6.10); RED CELL DISTRIBUTION WIDTH 10.4 % (11.6-14.8); WHITE BLOOD COUNT 9.5 K/UL (4.8-10.8)
[2017-08-24 11:24] LABS: ANION GAP 9 mmol/L (5-15); BLOOD UREA NITROGEN 16 mg/dL (7-18); CALCIUM 9.2 MG/DL (8.5-10.1); CARBON DIOXIDE 25 MMOL/L (21-32); CHLORIDE 106 MMOL/L (98-107); CREATININE 1.2 MG/DL (0.55-1.30); POTASSIUM 3.9 MMOL/L (3.5-5.1); SODIUM 140 MMOL/L (136-145)
[2017-08-24 12:00] VITALS: BP 120/77
--- NOTE | 2017-08-24 14:19 | Internal Med Progress Note ---
Subjective Physician Name Kareen Rascon Attending Physician Ahsan Rhodes M.D. Current Medications Medications (Trade) Dose Ordered Sig/Tracy Route PRN Reason Start Time Stop Time Status Last Admin Dose Admin Acetaminophen (Tylenol) 650 mg Q6H PRN ORAL Mild Pain/Temp > 100.5 08/20/17 12:45 09/19/17 12:44 08/21/17 03:38 Acetaminophen/ Hydrocodone Bitart ([place] 10/325) 1 tab Q4H PRN ORAL Moderate Pain (Pain Scale 4-6) 08/20/17 12:45 08/27/17 12:44 08/22/17 08:25 Albuterol/ Ipratropium (Albuterol/ Ipratropium) 3 ml Q4H PRN HHN Shortness of Breath 08/20/17 08:30 08/25/17 08:29 Guaifenesin (Mucinex ER) 600 mg TWICE A DAY ORAL 08/20/17 09:00 09/19/17 08:59 08/24/17 08:32 Guaifenesin (Robitussin) 100 mg Q4H PRN ORAL For Cough 08/20/17 08:30 09/19/17 08:29 Heparin Sodium (Porcine) (Heparin 5000 units/ml) 5,000 units EVERY 12 HOURS SUBQ 08/20/17 09:00 09/19/17 08:59 08/24/17 08:33 Lorazepam (Ativan) 2 mg Q6H PRN ORAL For Anxiety 08/20/17 12:15 08/27/17 12:14 Morphine Sulfate (Morphine Sulfate) 4 mg Q4H PRN IVP Severe Pain (Pain Scale 7-10) 08/20/17 12:45 08/27/17 12:44 Nicotine (Nicoderm) 1 patch Q24H TDERMAL 08/20/17 12:00 09/19/17 11:59 08/24/17 12:20 Ondansetron HCl (Zofran) 4 mg Q6H PRN IVP Nausea & Vomiting 08/22/17 13:43 09/21/17 13:42 08/22/17 13:51 Piperacillin Sod/ Tazobactam Sod 3.375 gm/Sodium Chloride 110 ml @ 27.5 mls/hr EVERY 8 HOURS IVPB 08/23/17 22:00 08/28/17 21:59 08/24/17 13:54 Allergies: Coded Allergies: No Known Allergies (Unverified , 08/19/17) Objective Last Vital Signs Date Time Temp Pulse Resp B/P (MAP) Pulse Ox O2 Delivery O2 Flow Rate FiO2 08/24/17 12:00 97.5 78 20 120/77 96 97.5 08/24/17 09:12 Room Air 21 Laboratory Tests Test 08/24/17 10:30 White Blood Count 9.5 K/UL (4.8-10.8) Red Blood Count 3.98 M/UL (4.70-6.10) L Hemoglobin 12.7 G/DL (14.2-18.0) L Hematocrit 37.6 % (42.0-52.0) L Mean Corpuscular Volume 95 FL (80-99) Mean Corpuscular Hemoglobin 32.0 PG (27.0-31.0) H Mean Corpuscular Hemoglobin Concent 33.8 G/DL (32.0-36.0) Red Cell Distribution Width 10.4 % (11.6-14.8) L Platelet Count 362 K/UL (150-450) Mean Platelet Volume 7.1 FL (6.5-10.1) Neutrophils (%) (Auto) 65.9 % (45.0-75.0) Lymphocytes (%) (Auto) 25.7 % (20.0-45.0) Monocytes (%) (Auto) 6.2 % (1.0-10.0) Eosinophils (%) (Auto) 1.8 % (0.0-3.0) Basophils (%) (Auto) 0.5 % (0.0-2.0) Sodium Level 140 MMOL/L (136-145) Potassium Level 3.9 MMOL/L (3.5-5.1) Chloride Level 106 MMOL/L (98-107) Carbon Dioxide Level 25 MMOL/L (21-32) Anion Gap 9 mmol/L (5-15) Blood Urea Nitrogen 16 mg/dL (7-18) Creatinine 1.2 MG/DL (0.55-1.30) Estimat Glomerular Filtration Rate > 60 mL/min (>60) Glucose Level 107 MG/DL (74-106) H Calcium Level 9.2 MG/DL (8.5-10.1) Microbiology Date/Time Source Procedure Growth Status 08/22/17 06:30 Sputum AFB Specimen Processing Tissue - Final Resulted 08/22/17 06:30 Sputum Acid Fast Bacilli Smear - Final Resulted 08/22/17 06:30 Sputum Acid Fast Bacilli Culture Pending Resulted Intake and Output 08/23/17 08/24/17 19:00 07:00 Intake Total 376.0 ml 110.0 ml Balance 376.0 ml 110.0 ml Intake Oral 200 ml IV Total 176.0 ml 110.0 ml # Voids 3 Assessment/Plan Assessment/Plan Assessment/Plan Assessment/Plan Problem List: (1) Tobacco abuse ICD Codes: Z72.0 - Tobacco use SNOMED: 262312759 (2) Cavitary pneumonia ICD Codes: J18.9 - Pneumonia, unspecified organism; J98.4 - Other disorders of lung SNOMED: 919178363 (3) Sepsis due to pneumonia ICD Codes: J18.9 - Pneumonia, unspecified organism; A41.9 - Sepsis, unspecified organism SNOMED: 22410179, 817931216 Status: stable, progressing Assessment/Plan - Pulmonology and ID following, appreciate rec's - repeat CXR on 08/22 shows cavitary mass on right lung region, no change - s/p IV vancomycin (08/20-08/22). Continue IV zosyn and azithromycin (08/20 - ) - sputum cx no growth at 48 hours. will dc IV vancomycin per discussion with ID - AFB x 3, r/o TB. AFB #1 negative. Pending #2 and #3. - airborne precautions - f/u blood cx - NGTD - atypical serologies sent: legionella, cryptococcus, coccidio, histoplasma, mycoplasma, M. pneumoniae, Aspergillus - f/u quantiferon gold -- negative - duonebs prn - Nicotine patch - IVF - TTE 60-65% - trops negative. EKG NSR. ACS ruled out. Right-sided chest pain likely 2/2 pneumonia - lipid panel, A1c - pain and supportive care - Patient refused CT-guided bx to evaluate the mass. Patient prefers to have this done after the infection resolves. Patient agrees to have a PET/CT in 4 weeks with close f/u with Dr. Rhodes in 1-2 weeks after hospital discharge - DISCHARGE PENDING THREE NEGATIVE AFB SMEARS. DVT Prophylaxis: SCD, HSQ Code Status: Full Hospital Classification Declaration: Based on this initial evaluation, and depending on the patient's clinical course, I anticipate that this patient will require hospitalization for 4-5 days for sepsis, atypical pneumonia and close respiratory/hemodynamic monitoring. Disposition: Once the patient is stable to leave the hospital, I anticipate the patient will likely be discharged to the following environment: home with HH I spent 41 minutes on this patient's case, and 23 minutes were dedicated to counseling and/or care coordination. Discussed with patient/family, nursing staff, SW/CM, ID, and bottle caser regarding clinical status, treatment course , and disposition planning. Thank you, Dr. Rhodes, for this consultation. Time of note may not reflect time of encounter. Subjective Subjective Date patient seen: August 23, 2017 Time patient seen: 11:00 Allergies: Coded Allergies: No Known Allergies (Unverified , 08/19/17) Subjective - no acute events overnight - AFB smears pending #2 and #3 - patient frustrated and requesting to go home - denies sob, cp. AF, HDS Objective Objective Last 24 Hour Vital Signs Date Time Temp Pulse Resp B/P (MAP) Pulse Ox O2 Delivery O2 Flow Rate FiO2 08/23/17 12:00 98.0 78 20 123/66 97 98.0 08/23/17 08:31 84 18 Room Air 21 08/23/17 08:00 97.2 80 20 100/65 96 97.2 08/23/17 04:00 98.9 73 20 116/66 96 98.9 08/23/17 00:00 99.0 83 20 129/71 98 99.0 08/22/17 20:00 98.9 82 20 114/69 95 98.9 08/22/17 19:30 82 20 Room Air 21 08/22/17 16:00 98.0 75 20 96/63 97 Room Air 98.0 Intake and Output 08/22/17 08/23/17 19:00 07:00 Intake Total 350.0 ml 37.5 ml Balance 350.0 ml 37.5 ml Intake Oral 240 ml 10 ml IV Total 110.0 ml 27.5 ml # Voids 1 # Bowel Movements 1 Laboratory Tests 08/23/17 10:00: White Blood Count 8.1, Red Blood Count 3.85L, Hemoglobin 12.3L, Hematocrit 36.8L , Mean Corpuscular Volume 96, Mean Corpuscular Hemoglobin 32.0H, Mean Corpuscular Hemoglobin Concent 33.5, Red Cell Distribution Width 10.3L, Platelet Count 346, Mean Platelet Volume 7.4, Neutrophils (%) (Auto) 63.6, Lymphocytes (%) (Auto) 26.3, Monocytes (%) (Auto) 7.1, Eosinophils (%) (Auto) 2.3, Basophils (%) (Auto) 0.7, Sodium Level 138, Potassium Level 3.8, Chloride Level 105, Carbon Dioxide Level 28, Anion Gap 6, Blood Urea Nitrogen 15, Creatinine 1.3, Estimat Glomerular Filtration Rate 57.5, Glucose Level 149H, Calcium Level 8.9, HIV (1&2) Antibody Rapid Negative Height (Feet): 5 Height (Inches): 8.00 Weight (Pounds): 182 General Appearance: no apparent distress, alert EENT: PERRL/EOMI, normal ENT inspection Neck: non-tender, normal alignment, supple Cardiovascular: normal peripheral pulses, normal rate, regular rhythm Respiratory/Chest: chest wall non-tender, lungs clear, normal breath sounds Abdomen: normal bowel sounds, non tender, soft Extremities: normal range of motion, non-tender Neurologic: color sprayer II-XII grossly normal, no motor/sensory deficits, alert, oriented x 3 Skin: normal pigmentation, warm/dry August 23, 2017 15:31 Kareen Rascon M.D. August 24, 2017 14:19
[2017-08-24 16:00] VITALS: BP 117/81
--- NOTE | 2017-08-24 17:41 | Pulmonology Progress Note ---
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 * Extensive daily smoker * B GGO's and CM * Periorbital Xanthomas PLAN: * R/O TB with AFB x 3 * AWAIT SPUTUM PCR * F/U sputum Cx * F/U Atypical infectious and inflammatory serologies * Zosyn (D4) per ID * PRN HHN's * Will hold off on CTGBx ----> Discussed with patient, will complete course of Abx then will get PET/CT in 4 weeks @ [facility] * Optimize pulmonary hygiene/mobilize as tolerated * Nicotine patch * Discuss tobacco cessation * Monitor volumes * Outpatient PFT's * DVT Px: Hep SQ * FC * Can F/U with me in 1-2 weeks after D/C or earlier PRN Subjective Allergies: Coded Allergies: No Known Allergies (Unverified , 08/19/17) Subjective AFVSS, stable on RA less cough, productive of yellow phlegm No F, less chills at nights, no N/VD/C Objective Last 24 Hour Vital Signs Date Time Temp Pulse Resp B/P (MAP) Pulse Ox O2 Delivery O2 Flow Rate FiO2 08/23/17 08:31 84 18 Room Air 21 08/23/17 04:00 98.9 73 20 116/66 96 98.9 08/23/17 00:00 99.0 83 20 129/71 98 99.0 08/22/17 20:00 98.9 82 20 114/69 95 98.9 08/22/17 19:30 82 20 Room Air 21 08/22/17 16:00 98.0 75 20 96/63 97 Room Air 98.0 08/22/17 12:00 97.3 80 20 117/69 100 Room Air 97.3 08/22/17 10:12 78 16 Room Air 21 Intake and Output 08/22/17 08/23/17 19:00 07:00 Intake Total 350.0 ml 10 ml Balance 350.0 ml 10 ml Intake Oral 240 ml 10 ml IV Total 110.0 ml # Voids 1 # Bowel Movements 1 General Appearance: WD/WN, no acute distress HEENT: normocephalic, atraumatic, anicteric, mucous membranes moist Respiratory/Chest: chest wall non-tender, lungs clear, normal breath sounds, no respiratory distress Cardiovascular: normal peripheral pulses, normal rate, regular rhythm Abdomen: normal bowel sounds, soft, non tender, no organomegaly, non distended Extremities: no cyanosis, no clubbing, no edema Microbiology Date/Time Source Procedure Growth Status 08/20/17 11:50 Sputum Gram Stain - Final Complete 08/20/17 11:50 Sputum Sputum Culture - Final NORMAL UPPER RESPIRATORY EWA PRESENT Complete 08/20/17 11:50 Sputum AFB Specimen Processing Tissue - Final Resulted 08/20/17 11:50 Sputum Acid Fast Bacilli Smear - Final Resulted 08/20/17 11:50 Sputum Acid Fast Bacilli Culture Pending Resulted Current Medications Medications (Trade) Dose Ordered Sig/Tracy Route PRN Reason Start Time Stop Time Status Last Admin Dose Admin Acetaminophen (Tylenol) 650 mg Q6H PRN ORAL Mild Pain/Temp > 100.5 08/20/17 12:45 09/19/17 12:44 08/21/17 03:38 Acetaminophen/ Hydrocodone Bitart ([place] 10/325) 1 tab Q4H PRN ORAL Moderate Pain (Pain Scale 4-6) 08/20/17 12:45 08/27/17 12:44 08/22/17 08:25 Albuterol/ Ipratropium (Albuterol/ Ipratropium) 3 ml Q4H PRN HHN Shortness of Breath 08/20/17 08:30 08/25/17 08:29 Azithromycin (Zithromax) 250 mg DAILY ORAL 08/21/17 09:00 08/28/17 23:59 08/22/17 08:25 Guaifenesin (Mucinex ER) 600 mg TWICE A DAY ORAL 08/20/17 09:00 09/19/17 08:59 08/22/17 17:35 Guaifenesin (Robitussin) 100 mg Q4H PRN ORAL For Cough 08/20/17 08:30 09/19/17 08:29 Heparin Sodium (Porcine) (Heparin 5000 units/ml) 5,000 units EVERY 12 HOURS SUBQ 08/20/17 09:00 09/19/17 08:59 08/22/17 20:55 Lorazepam (Ativan) 2 mg Q6H PRN ORAL For Anxiety 08/20/17 12:15 08/27/17 12:14 Morphine Sulfate (Morphine Sulfate) 4 mg Q4H PRN IVP Severe Pain (Pain Scale 7-10) 08/20/17 12:45 08/27/17 12:44 Nicotine (Nicoderm) 1 patch Q24H TDERMAL 08/20/17 12:00 09/19/17 11:59 08/22/17 11:17 Ondansetron HCl (Zofran) 4 mg Q6H PRN IVP Nausea & Vomiting 08/22/17 13:43 09/21/17 13:42 08/22/17 13:51 Piperacillin Sod/ Tazobactam Sod 3.375 gm/Sodium Chloride 110 ml @ 27.5 mls/hr EVERY 8 HOURS IVPB 08/20/17 14:00 08/25/17 13:59 08/23/17 05:56 Subjective ROS Limited/Unobtainable: No Constitutional: Reports: no symptoms HEENT: Repors: no symptoms Respiratory: Reports: no symptoms Cardiovascular: Reports: no symptoms Gastrointestinal/Abdominal: Reports: no symptoms Genitourinary: Reports: no symptoms Neurologic: Reports: no symptoms Psychiatric: Reports: no symptoms Skin: Reports: no symptoms Endocrine: Reports: no symptoms Hematologic: Reports: no symptoms Musculoskeletal: Reports: no symptoms Allergies: Coded Allergies: No Known Allergies (Unverified , 08/19/17) Objective Last 24 Hour Vital Signs Date Time Temp Pulse Resp B/P (MAP) Pulse Ox O2 Delivery O2 Flow Rate FiO2 08/24/17 16:00 97.8 86 19 117/81 97 97.8 08/24/17 12:00 97.5 78 20 120/77 96 97.5 08/24/17 09:12 74 20 Room Air 21 08/24/17 08:00 97.9 73 20 107/72 95 97.9 08/24/17 04:00 98.9 20 114/70 95 98.9 08/24/17 00:00 98.4 73 19 113/70 95 98.4 08/23/17 20:20 79 18 Room Air 21 08/23/17 20:00 98.8 71 20 112/68 95 98.8 Intake and Output 08/23/17 08/24/17 19:00 07:00 Intake Total 376.0 ml 110.0 ml Balance 376.0 ml 110.0 ml Intake Oral 200 ml IV Total 176.0 ml 110.0 ml # Voids 3 Microbiology Date/Time Source Procedure Growth Status 08/22/17 06:30 Sputum AFB Specimen Processing Tissue - Final Resulted 08/22/17 06:30 Sputum Acid Fast Bacilli Smear - Final Resulted 08/22/17 06:30 Sputum Acid Fast Bacilli Culture Pending Resulted Laboratory Tests 08/24/17 10:30: White Blood Count 9.5, Red Blood Count 3.98L, Hemoglobin 12.7L, Hematocrit 37.6L , Mean Corpuscular Volume 95, Mean Corpuscular Hemoglobin 32.0H, Mean Corpuscular Hemoglobin Concent 33.8, Red Cell Distribution Width 10.4L, Platelet Count 362, Mean Platelet Volume 7.1, Neutrophils (%) (Auto) 65.9, Lymphocytes (%) (Auto) 25.7, Monocytes (%) (Auto) 6.2, Eosinophils (%) (Auto) 1.8, Basophils (%) (Auto) 0.5, Sodium Level 140, Potassium Level 3.9, Chloride Level 106, Carbon Dioxide Level 25, Anion Gap 9, Blood Urea Nitrogen 16, Creatinine 1.2, Estimat Glomerular Filtration Rate > 60, Glucose Level 107H, Calcium Level 9.2 Current Medications Medications (Trade) Dose Ordered Sig/Tracy Route PRN Reason Start Time Stop Time Status Last Admin Dose Admin Acetaminophen (Tylenol) 650 mg Q6H PRN ORAL Mild Pain/Temp > 100.5 08/20/17 12:45 09/19/17 12:44 08/21/17 03:38 Acetaminophen/ Hydrocodone Bitart ([place] 10/325) 1 tab Q4H PRN ORAL Moderate Pain (Pain Scale 4-6) 08/20/17 12:45 08/27/17 12:44 08/22/17 08:25 Albuterol/ Ipratropium (Albuterol/ Ipratropium) 3 ml Q4H PRN HHN Shortness of Breath 08/20/17 08:30 08/25/17 08:29 Guaifenesin (Mucinex ER) 600 mg TWICE A DAY ORAL 08/20/17 09:00 09/19/17 08:59 08/24/17 17:29 Guaifenesin (Robitussin) 100 mg Q4H PRN ORAL For Cough 08/20/17 08:30 09/19/17 08:29 Heparin Sodium (Porcine) (Heparin 5000 units/ml) 5,000 units EVERY 12 HOURS SUBQ 08/20/17 09:00 09/19/17 08:59 08/24/17 08:33 Lorazepam (Ativan) 2 mg Q6H PRN ORAL For Anxiety 08/20/17 12:15 08/27/17 12:14 Morphine Sulfate (Morphine Sulfate) 4 mg Q4H PRN IVP Severe Pain (Pain Scale 7-10) 08/20/17 12:45 08/27/17 12:44 Nicotine (Nicoderm) 1 patch Q24H TDERMAL 08/20/17 12:00 09/19/17 11:59 08/24/17 12:20 Ondansetron HCl (Zofran) 4 mg Q6H PRN IVP Nausea & Vomiting 08/22/17 13:43 09/21/17 13:42 08/22/17 13:51 Piperacillin Sod/ Tazobactam Sod 3.375 gm/Sodium Chloride 110 ml @ 27.5 mls/hr EVERY 8 HOURS IVPB 08/23/17 22:00 08/28/17 21:59 08/24/17 13:54 Duy Dang MD August 24, 2017 17:41
[2017-08-24 20:00] VITALS: BP 115/74
[2017-08-25] VITALS: BP 101/70
[2017-08-25 04:00] VITALS: BP 106/76
[2017-08-25] MEDS: Piperacillin/Tazobactam 3.375 GM in NS 110 ML IVPB SCH ×3 (05:58→21:40)
[2017-08-25 08:00] VITALS: BP 108/68
[2017-08-25] MEDS: guaiFENesin ER 600mg tab ORAL SCH ×2 (09:53→17:21)
[2017-08-25] MEDS: Heparin 5000 units/ml inj SUBQ SCH ×2 (09:54→21:42)
[2017-08-25 12:00] VITALS: BP 115/59
--- NOTE | 2017-08-25 12:58 | Infectious Diseases Prog Note ---
Assessment/Plan Assessment/Plan A) 1) pneumonia, ? neoplasm, ? cap, ? atypical, ? fungal, ? tuberculosis,? post- obstructive/anaerobic - clinically better, no sob - leukocytosis and fevers better - tb-spot negative, afb smear negative x 3, tb pcr pending/ - low suspicion for tuberculosis - mycoplasma igm negative, legionella urine antigen negative 2) ? sepsis, leukocytosis, fevers - fevers and leukocytosis better 3) pmh o/w negative 4) allergies - nkda, sh - + smoking, fh-nc, mar noted, notes and records noted 5) d/w RN P) 1) zosyn - day # 6 abx, discontinue azithromycin 2) consider discharge on oral augmentin upon discharge, plan on 10 day total of abx since severe pna, augmentin script written 3) no biopsy for now, f/u ct in future, f/u on labs and serology, check tuberculosis pcr 4) d/w Dr. Rhodes 5) d/w Janine Plasencia, 6) orders noted and entered 7) d/w with ICP 8) consider discontinue isolation, low suspicion for tuberculosis pna, afb smear negative x 3, t-spot negative - will d/w primary care and pulmonary Subjective Constitutional: Denies: fever HEENT: Denies: congestion Respiratory: Denies: shortness of breath Cardiovascular: Denies: chest pain Gastrointestinal/Abdominal: Denies: nausea, vomiting, diarrhea Genitourinary: Denies: dysuria, hematuria, frequency Neurologic: Denies: headache Psychiatric: Denies: depression Skin: Denies: rash Hematologic: Denies: bleeding Musculoskeletal: Denies: pain Allergies: Coded Allergies: No Known Allergies (Unverified , 08/19/17) Objective Vital Signs Last 24 Hour Vital Signs Date Time Temp Pulse Resp B/P (MAP) Pulse Ox O2 Delivery O2 Flow Rate FiO2 08/25/17 12:00 98.0 77 21 115/59 97 Room Air 98.0 08/25/17 08:42 72 20 Room Air 21 08/25/17 08:00 98.3 73 20 108/68 96 Room Air 98.3 08/25/17 04:00 98.3 77 18 106/76 95 98.3 08/25/17 04:00 Room Air 08/25/17 00:00 Room Air 08/25/17 00:00 98.2 72 18 101/70 97 98.2 08/24/17 20:00 Room Air 08/24/17 20:00 99.1 74 18 115/74 98 99.1 08/24/17 19:58 85 20 Room Air 21 08/24/17 16:00 97.8 86 19 117/81 97 97.8 Height (Feet): 5 Height (Inches): 8.00 Weight (Pounds): 182 General Appearance: no acute distress HEENT: normocephalic, atraumatic, anicteric, mucous membranes moist Respiratory/Chest: lungs clear, normal breath sounds, no accessory muscle use, respiratory distress Cardiovascular: normal peripheral pulses, normal rate, regular rhythm, no gallop/murmur Abdomen: normal bowel sounds, soft, non tender, no organomegaly, non distended Genitourinary: other - no lazo Extremities: no cyanosis Skin: no rash, no lesions Neurologic/Psychiatric: nursing admin II-XII grossly normal, no motor/sensory deficits, abnormal gait, alert, oriented x 3, responsive Lymphatic: no neck adenopathy Musculoskeletal: no effusion Objective Chest x-ray - 08/20 - Impression: Right midlung mass with subtle central cavitation, also described on subsequent chest CT. Neoplastic versus inflammatory Hypoventilatory exam with bilateral basilar atelectasis CT chest: Impression: Suboptimal opacification of the pulmonary arteries, distal emboli could be missed. No evidence of large vessel central pulmonary embolus demonstrated 4.5 x 3.9 x 4 cm cavitary mass in the periphery of the right lower lobe. This may be either neoplastic or inflammatory. Right hilar lymphadenopathy, likely related to the above. This could likewise be neoplastic or inflammatory. Bilateral reticular interstitial and groundglass opacities. Nonspecific, suspect on the basis of pulmonary edema, but could also be infectious or noninfectious inflammatory Trace right pleural effusion, cm, ? cholelithiasis Chest x-ray - 08/22 - Findings: Cavitary lesion again demonstrated within the right midlung. Heart size is normal. No pleural effusion identified. Bones are unremarkable. IMPRESSION: Cavitary mass in the right midlung. No change Microbiology Date/Time Source Procedure Growth Status 08/20/17 00:35 Blood Blood Culture - Final NO GROWTH AFTER 5 DAYS Complete 08/22/17 06:30 Sputum AFB Specimen Processing Tissue - Final Resulted 08/22/17 06:30 Sputum Acid Fast Bacilli Smear - Final Resulted 08/22/17 06:30 Sputum Acid Fast Bacilli Culture Pending Resulted Labs Test 08/23/17 10:00 08/24/17 10:30 White Blood Count 8.1 K/UL (4.8-10.8) 9.5 K/UL (4.8-10.8) Red Blood Count 3.85 M/UL (4.70-6.10) 3.98 M/UL (4.70-6.10) Hemoglobin 12.3 G/DL (14.2-18.0) 12.7 G/DL (14.2-18.0) Hematocrit 36.8 % (42.0-52.0) 37.6 % (42.0-52.0) Mean Corpuscular Volume 96 FL (80-99) 95 FL (80-99) Mean Corpuscular Hemoglobin 32.0 PG (27.0-31.0) 32.0 PG (27.0-31.0) Mean Corpuscular Hemoglobin Concent 33.5 G/DL (32.0-36.0) 33.8 G/DL (32.0-36.0) Red Cell Distribution Width 10.3 % (11.6-14.8) 10.4 % (11.6-14.8) Platelet Count 346 K/UL (150-450) 362 K/UL (150-450) Mean Platelet Volume 7.4 FL (6.5-10.1) 7.1 FL (6.5-10.1) Neutrophils (%) (Auto) 63.6 % (45.0-75.0) 65.9 % (45.0-75.0) Lymphocytes (%) (Auto) 26.3 % (20.0-45.0) 25.7 % (20.0-45.0) Monocytes (%) (Auto) 7.1 % (1.0-10.0) 6.2 % (1.0-10.0) Eosinophils (%) (Auto) 2.3 % (0.0-3.0) 1.8 % (0.0-3.0) Basophils (%) (Auto) 0.7 % (0.0-2.0) 0.5 % (0.0-2.0) Sodium Level 138 MMOL/L (136-145) 140 MMOL/L (136-145) Potassium Level 3.8 MMOL/L (3.5-5.1) 3.9 MMOL/L (3.5-5.1) Chloride Level 105 MMOL/L (98-107) 106 MMOL/L (98-107) Carbon Dioxide Level 28 MMOL/L (21-32) 25 MMOL/L (21-32) Anion Gap 6 mmol/L (5-15) 9 mmol/L (5-15) Blood Urea Nitrogen 15 mg/dL (7-18) 16 mg/dL (7-18) Creatinine 1.3 MG/DL (0.55-1.30) 1.2 MG/DL (0.55-1.30) Estimat Glomerular Filtration Rate 57.5 mL/min (>60) > 60 mL/min (>60) Glucose Level 149 MG/DL (74-106) 107 MG/DL (74-106) Calcium Level 8.9 MG/DL (8.5-10.1) 9.2 MG/DL (8.5-10.1) HIV (1&2) Antibody Rapid Negative (NEGATIVE) Current Medications Medications (Trade) Dose Ordered Sig/Tracy Route PRN Reason Start Time Stop Time Status Last Admin Dose Admin Acetaminophen (Tylenol) 650 mg Q6H PRN ORAL Mild Pain/Temp > 100.5 08/20/17 12:45 09/19/17 12:44 08/21/17 03:38 Acetaminophen/ Hydrocodone Bitart ([place] 10/325) 1 tab Q4H PRN ORAL Moderate Pain (Pain Scale 4-6) 08/20/17 12:45 08/27/17 12:44 08/22/17 08:25 Guaifenesin (Mucinex ER) 600 mg TWICE A DAY ORAL 08/20/17 09:00 09/19/17 08:59 08/25/17 09:53 Guaifenesin (Robitussin) 100 mg Q4H PRN ORAL For Cough 08/20/17 08:30 09/19/17 08:29 Heparin Sodium (Porcine) (Heparin 5000 units/ml) 5,000 units EVERY 12 HOURS SUBQ 08/20/17 09:00 09/19/17 08:59 08/25/17 09:54 Lorazepam (Ativan) 2 mg Q6H PRN ORAL For Anxiety 08/20/17 12:15 08/27/17 12:14 Morphine Sulfate (Morphine Sulfate) 4 mg Q4H PRN IVP Severe Pain (Pain Scale 7-10) 08/20/17 12:45 08/27/17 12:44 Nicotine (Nicoderm) 1 patch Q24H TDERMAL 08/20/17 12:00 09/19/17 11:59 08/24/17 12:20 Ondansetron HCl (Zofran) 4 mg Q6H PRN IVP Nausea & Vomiting 08/22/17 13:43 09/21/17 13:42 08/22/17 13:51 Piperacillin Sod/ Tazobactam Sod 3.375 gm/Sodium Chloride 110 ml @ 27.5 mls/hr EVERY 8 HOURS IVPB 08/23/17 22:00 08/28/17 21:59 08/25/17 05:58 Harsha Diez MD August 25, 2017 12:58
[2017-08-25 16:06] VITALS: BP 107/73
--- NOTE | 2017-08-25 18:17 | Internal Med Progress Note ---
Subjective Physician Name Kareen Rascon Attending Physician Ahsan Rhodes M.D. Current Medications Medications (Trade) Dose Ordered Sig/Tracy Route PRN Reason Start Time Stop Time Status Last Admin Dose Admin Acetaminophen (Tylenol) 650 mg Q6H PRN ORAL Mild Pain/Temp > 100.5 08/20/17 12:45 09/19/17 12:44 08/21/17 03:38 Acetaminophen/ Hydrocodone Bitart ([place] 10/325) 1 tab Q4H PRN ORAL Moderate Pain (Pain Scale 4-6) 08/20/17 12:45 08/27/17 12:44 08/22/17 08:25 Guaifenesin (Mucinex ER) 600 mg TWICE A DAY ORAL 08/20/17 09:00 09/19/17 08:59 08/25/17 17:21 Guaifenesin (Robitussin) 100 mg Q4H PRN ORAL For Cough 08/20/17 08:30 09/19/17 08:29 Heparin Sodium (Porcine) (Heparin 5000 units/ml) 5,000 units EVERY 12 HOURS SUBQ 08/20/17 09:00 09/19/17 08:59 08/25/17 09:54 Lorazepam (Ativan) 2 mg Q6H PRN ORAL For Anxiety 08/20/17 12:15 08/27/17 12:14 Morphine Sulfate (Morphine Sulfate) 4 mg Q4H PRN IVP Severe Pain (Pain Scale 7-10) 08/20/17 12:45 08/27/17 12:44 Nicotine (Nicoderm) 1 patch Q24H TDERMAL 08/20/17 12:00 09/19/17 11:59 08/25/17 13:03 Ondansetron HCl (Zofran) 4 mg Q6H PRN IVP Nausea & Vomiting 08/22/17 13:43 09/21/17 13:42 08/22/17 13:51 Piperacillin Sod/ Tazobactam Sod 3.375 gm/Sodium Chloride 110 ml @ 27.5 mls/hr EVERY 8 HOURS IVPB 08/23/17 22:00 08/28/17 21:59 08/25/17 14:53 Allergies: Coded Allergies: No Known Allergies (Unverified , 08/19/17) Objective Last Vital Signs Date Time Temp Pulse Resp B/P (MAP) Pulse Ox O2 Delivery O2 Flow Rate FiO2 08/25/17 16:06 98.1 74 20 107/73 99 Room Air 98.1 08/25/17 08:42 21 Intake and Output 08/24/17 08/25/17 19:00 07:00 Intake Total 1092.5 ml 497.5 ml Output Total 1300 ml Balance 1092.5 ml -802.5 ml Intake Oral 900 ml 360 ml IV Total 192.5 ml 137.5 ml Output Urine Total 1300 ml # Voids 1 Assessment/Plan Assessment/Plan Assessment/Plan Assessment/Plan Problem List: (1) Tobacco abuse ICD Codes: Z72.0 - Tobacco use SNOMED: 550873422 (2) Cavitary pneumonia ICD Codes: J18.9 - Pneumonia, unspecified organism; J98.4 - Other disorders of lung SNOMED: 783856946 (3) Sepsis due to pneumonia ICD Codes: J18.9 - Pneumonia, unspecified organism; A41.9 - Sepsis, unspecified organism SNOMED: 30424326, 092888459 Status: stable, progressing Assessment/Plan - Pulmonology and ID following, appreciate rec's - repeat CXR on 08/22 shows cavitary mass on right lung region, no change - s/p IV vancomycin (08/20-08/22). Continue IV zosyn and azithromycin (08/20 - ) - sputum cx no growth at 48 hours. will dc IV vancomycin per discussion with ID - AFB x 3, r/o TB. AFB x3 negative - airborne precautions - f/u blood cx - NGTD - atypical serologies sent: legionella, cryptococcus, coccidio, histoplasma, mycoplasma, M. pneumoniae, Aspergillus - f/u quantiferon gold -- negative - duonebs prn - Nicotine patch - IVF - TTE 60-65% - trops negative. EKG NSR. ACS ruled out. Right-sided chest pain likely 2/2 pneumonia - pain and supportive care - Patient refused CT-guided bx to evaluate the mass. Patient prefers to have this done after the infection resolves. Patient agrees to have a PET/CT in 4 weeks with close f/u with Dr. Rhodes in 1-2 weeks after hospital discharge DVT Prophylaxis: SCD, HSQ Code Status: Full Hospital Classification Declaration: Based on this initial evaluation, and depending on the patient's clinical course, I anticipate that this patient will require hospitalization for 4-5 days for sepsis, atypical pneumonia and close respiratory/hemodynamic monitoring. Disposition: Once the patient is stable to leave the hospital, I anticipate the patient will likely be discharged to the following environment: home with HH I spent 41 minutes on this patient's case, and 23 minutes were dedicated to counseling and/or care coordination. Discussed with patient/family, nursing staff, SW/CM, ID, and shipper receiver regarding clinical status, treatment course , and disposition planning. Thank you, Dr. Rhodes, for this consultation. Time of note may not reflect time of encounter. Subjective Subjective Date patient seen: August 23, 2017 Time patient seen: 11:00 Allergies: Coded Allergies: No Known Allergies (Unverified , 08/19/17) Subjective - no acute events overnight - AFB smears negative x3 - patient frustrated and requesting to go home - denies sob, cp. AF, HDS pending clearance by health department Objective Objective Last 24 Hour Vital Signs Date Time Temp Pulse Resp B/P (MAP) Pulse Ox O2 Delivery O2 Flow Rate FiO2 08/23/17 12:00 98.0 78 20 123/66 97 98.0 08/23/17 08:31 84 18 Room Air 21 08/23/17 08:00 97.2 80 20 100/65 96 97.2 08/23/17 04:00 98.9 73 20 116/66 96 98.9 08/23/17 00:00 99.0 83 20 129/71 98 99.0 08/22/17 20:00 98.9 82 20 114/69 95 98.9 08/22/17 19:30 82 20 Room Air 21 08/22/17 16:00 98.0 75 20 96/63 97 Room Air 98.0 Intake and Output 08/22/17 08/23/17 19:00 07:00 Intake Total 350.0 ml 37.5 ml Balance 350.0 ml 37.5 ml Intake Oral 240 ml 10 ml IV Total 110.0 ml 27.5 ml # Voids 1 # Bowel Movements 1 Laboratory Tests 08/23/17 10:00: White Blood Count 8.1, Red Blood Count 3.85L, Hemoglobin 12.3L, Hematocrit 36.8L , Mean Corpuscular Volume 96, Mean Corpuscular Hemoglobin 32.0H, Mean Corpuscular Hemoglobin Concent 33.5, Red Cell Distribution Width 10.3L, Platelet Count 346, Mean Platelet Volume 7.4, Neutrophils (%) (Auto) 63.6, Lymphocytes (%) (Auto) 26.3, Monocytes (%) (Auto) 7.1, Eosinophils (%) (Auto) 2.3, Basophils (%) (Auto) 0.7, Sodium Level 138, Potassium Level 3.8, Chloride Level 105, Carbon Dioxide Level 28, Anion Gap 6, Blood Urea Nitrogen 15, Creatinine 1.3, Estimat Glomerular Filtration Rate 57.5, Glucose Level 149H, Calcium Level 8.9, HIV (1&2) Antibody Rapid Negative Height (Feet): 5 Height (Inches): 8.00 Weight (Pounds): 182 General Appearance: no apparent distress, alert EENT: PERRL/EOMI, normal ENT inspection Neck: non-tender, normal alignment, supple Cardiovascular: normal peripheral pulses, normal rate, regular rhythm Respiratory/Chest: chest wall non-tender, lungs clear, normal breath sounds Abdomen: normal bowel sounds, non tender, soft Extremities: normal range of motion, non-tender Neurologic: supervisor electronic testing II-XII grossly normal, no motor/sensory deficits, alert, oriented x 3 Skin: normal pigmentation, warm/dry August 23, 2017 15:31 Kareen Rascon M.D. August 25, 2017 18:17
[2017-08-25 20:00] VITALS: BP 118/64
[2017-08-26] VITALS: BP 108/57
[2017-08-26 04:00] VITALS: BP 102/68
[2017-08-26] MEDS: Piperacillin/Tazobactam 3.375 GM in NS 110 ML IVPB SCH ×2 (05:02→14:00)
[2017-08-26 07:29] LABS: BASOPHILS % (AUTO) 0.8 % (0.0-2.0); EOSINOPHILS % (AUTO) 3.5 % (0.0-3.0); HEMATOCRIT 39.1 % (42.0-52.0); HEMOGLOBIN 13.2 G/DL (14.2-18.0); LYMPHOCYTES % (AUTO) 32.7 % (20.0-45.0); MEAN CORPUSCULAR VOLUME 95 FL (80-99); MONOCYTES % (AUTO) 7.2 % (1.0-10.0); NEUTROPHILS % (AUTO) 55.9 % (45.0-75.0); PLATELET COUNT 356 K/UL (150-450); RED BLOOD COUNT 4.11 M/UL (4.70-6.10); WHITE BLOOD COUNT 8.5 K/UL (4.8-10.8)
[2017-08-26 07:54] LABS: ANION GAP 10 mmol/L (5-15); BLOOD UREA NITROGEN 19 mg/dL (7-18); CALCIUM 9.1 MG/DL (8.5-10.1); CARBON DIOXIDE 23 MMOL/L (21-32); CHLORIDE 106 MMOL/L (98-107); CREATININE 1.2 MG/DL (0.55-1.30); POTASSIUM 4.3 MMOL/L (3.5-5.1); SODIUM 139 MMOL/L (136-145)
[2017-08-26 08:00] VITALS: BP 105/70
[2017-08-26] MEDS: guaiFENesin ER 600mg tab ORAL SCH (09:15)
[2017-08-26] MEDS: Heparin 5000 units/ml inj SUBQ SCH (09:30)
--- NOTE | 2017-08-26 10:36 | Pulmonology Progress Note ---
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 * Extensive daily smoker * B GGO's and CM * Periorbital Xanthomas PLAN: * R/O TB with AFB x 3 * AWAIT SPUTUM PCR * F/U sputum Cx * F/U Atypical infectious and inflammatory serologies * Zosyn (D4) per ID * PRN HHN's * Will hold off on CTGBx ----> Discussed with patient, will complete course of Abx then will get PET/CT in 4 weeks @ [facility] * Optimize pulmonary hygiene/mobilize as tolerated * Nicotine patch * Discuss tobacco cessation * Monitor volumes * Outpatient PFT's * DVT Px: Hep SQ * FC * Can F/U with me in 1-2 weeks after D/C or earlier PRN Subjective Allergies: Coded Allergies: No Known Allergies (Unverified , 08/19/17) Subjective AFVSS, stable on RA less cough, productive of yellow phlegm No F, less chills at nights, no N/VD/C Objective Last 24 Hour Vital Signs Date Time Temp Pulse Resp B/P (MAP) Pulse Ox O2 Delivery O2 Flow Rate FiO2 08/23/17 08:31 84 18 Room Air 21 08/23/17 04:00 98.9 73 20 116/66 96 98.9 08/23/17 00:00 99.0 83 20 129/71 98 99.0 08/22/17 20:00 98.9 82 20 114/69 95 98.9 08/22/17 19:30 82 20 Room Air 21 08/22/17 16:00 98.0 75 20 96/63 97 Room Air 98.0 08/22/17 12:00 97.3 80 20 117/69 100 Room Air 97.3 08/22/17 10:12 78 16 Room Air 21 Intake and Output 08/22/17 08/23/17 19:00 07:00 Intake Total 350.0 ml 10 ml Balance 350.0 ml 10 ml Intake Oral 240 ml 10 ml IV Total 110.0 ml # Voids 1 # Bowel Movements 1 General Appearance: WD/WN, no acute distress HEENT: normocephalic, atraumatic, anicteric, mucous membranes moist Respiratory/Chest: chest wall non-tender, lungs clear, normal breath sounds, no respiratory distress Cardiovascular: normal peripheral pulses, normal rate, regular rhythm Abdomen: normal bowel sounds, soft, non tender, no organomegaly, non distended Extremities: no cyanosis, no clubbing, no edema Microbiology Date/Time Source Procedure Growth Status 08/20/17 11:50 Sputum Gram Stain - Final Complete 08/20/17 11:50 Sputum Sputum Culture - Final NORMAL UPPER RESPIRATORY EWA PRESENT Complete 08/20/17 11:50 Sputum AFB Specimen Processing Tissue - Final Resulted 08/20/17 11:50 Sputum Acid Fast Bacilli Smear - Final Resulted 08/20/17 11:50 Sputum Acid Fast Bacilli Culture Pending Resulted Current Medications Medications (Trade) Dose Ordered Sig/Tracy Route PRN Reason Start Time Stop Time Status Last Admin Dose Admin Acetaminophen (Tylenol) 650 mg Q6H PRN ORAL Mild Pain/Temp > 100.5 08/20/17 12:45 09/19/17 12:44 08/21/17 03:38 Acetaminophen/ Hydrocodone Bitart ([place] 10/325) 1 tab Q4H PRN ORAL Moderate Pain (Pain Scale 4-6) 08/20/17 12:45 08/27/17 12:44 08/22/17 08:25 Albuterol/ Ipratropium (Albuterol/ Ipratropium) 3 ml Q4H PRN HHN Shortness of Breath 08/20/17 08:30 08/25/17 08:29 Azithromycin (Zithromax) 250 mg DAILY ORAL 08/21/17 09:00 08/28/17 23:59 08/22/17 08:25 Guaifenesin (Mucinex ER) 600 mg TWICE A DAY ORAL 08/20/17 09:00 09/19/17 08:59 08/22/17 17:35 Guaifenesin (Robitussin) 100 mg Q4H PRN ORAL For Cough 08/20/17 08:30 09/19/17 08:29 Heparin Sodium (Porcine) (Heparin 5000 units/ml) 5,000 units EVERY 12 HOURS SUBQ 08/20/17 09:00 09/19/17 08:59 08/22/17 20:55 Lorazepam (Ativan) 2 mg Q6H PRN ORAL For Anxiety 08/20/17 12:15 08/27/17 12:14 Morphine Sulfate (Morphine Sulfate) 4 mg Q4H PRN IVP Severe Pain (Pain Scale 7-10) 08/20/17 12:45 08/27/17 12:44 Nicotine (Nicoderm) 1 patch Q24H TDERMAL 08/20/17 12:00 09/19/17 11:59 08/22/17 11:17 Ondansetron HCl (Zofran) 4 mg Q6H PRN IVP Nausea & Vomiting 08/22/17 13:43 09/21/17 13:42 08/22/17 13:51 Piperacillin Sod/ Tazobactam Sod 3.375 gm/Sodium Chloride 110 ml @ 27.5 mls/hr EVERY 8 HOURS IVPB 08/20/17 14:00 08/25/17 13:59 08/23/17 05:56 Patient seen on 08/25/2017 Subjective Allergies: Coded Allergies: No Known Allergies (Unverified , 08/19/17) Objective Last 24 Hour Vital Signs Date Time Temp Pulse Resp B/P (MAP) Pulse Ox O2 Delivery O2 Flow Rate FiO2 08/26/17 08:00 97.5 64 20 105/70 95 Room Air 97.5 08/26/17 04:00 98.4 62 19 102/68 95 98.4 08/26/17 00:00 98.6 62 19 108/57 100 98.6 08/25/17 20:00 98.9 73 20 118/64 95 98.9 08/25/17 19:14 77 20 Room Air 21 08/25/17 16:06 98.1 74 20 107/73 99 Room Air 98.1 08/25/17 12:00 98.0 77 21 115/59 97 Room Air 98.0 Intake and Output 08/25/17 08/26/17 19:00 07:00 Intake Total 945.0 ml Balance 945.0 ml Intake Oral 780 ml IV Total 165.0 ml # Voids 3 # Bowel Movements 1 Laboratory Tests 08/26/17 06:45: White Blood Count 8.5, Red Blood Count 4.11L, Hemoglobin 13.2L, Hematocrit 39.1L , Mean Corpuscular Volume 95, Mean Corpuscular Hemoglobin 32.0H, Mean Corpuscular Hemoglobin Concent 33.6, Red Cell Distribution Width 11.0L, Platelet Count 356, Mean Platelet Volume 7.1, Neutrophils (%) (Auto) 55.9, Lymphocytes (%) (Auto) 32.7, Monocytes (%) (Auto) 7.2, Eosinophils (%) (Auto) 3.5H, Basophils (%) (Auto) 0.8, Sodium Level 139, Potassium Level 4.3, Chloride Level 106, Carbon Dioxide Level 23, Anion Gap 10, Blood Urea Nitrogen 19H, Creatinine 1.2, Estimat Glomerular Filtration Rate > 60, Glucose Level 101, Calcium Level 9.1 Current Medications Medications (Trade) Dose Ordered Sig/Tracy Route PRN Reason Start Time Stop Time Status Last Admin Dose Admin Acetaminophen (Tylenol) 650 mg Q6H PRN ORAL Mild Pain/Temp > 100.5 08/20/17 12:45 09/19/17 12:44 08/21/17 03:38 Acetaminophen/ Hydrocodone Bitart ([place] 10/325) 1 tab Q4H PRN ORAL Moderate Pain (Pain Scale 4-6) 08/20/17 12:45 08/27/17 12:44 08/22/17 08:25 Guaifenesin (Mucinex ER) 600 mg TWICE A DAY ORAL 08/20/17 09:00 09/19/17 08:59 08/26/17 09:15 Guaifenesin (Robitussin) 100 mg Q4H PRN ORAL For Cough 08/20/17 08:30 09/19/17 08:29 Heparin Sodium (Porcine) (Heparin 5000 units/ml) 5,000 units EVERY 12 HOURS SUBQ 08/20/17 09:00 09/19/17 08:59 08/26/17 09:30 Lorazepam (Ativan) 2 mg Q6H PRN ORAL For Anxiety 08/20/17 12:15 08/27/17 12:14 Morphine Sulfate (Morphine Sulfate) 4 mg Q4H PRN IVP Severe Pain (Pain Scale 7-10) 08/20/17 12:45 08/27/17 12:44 Nicotine (Nicoderm) 1 patch Q24H TDERMAL 08/20/17 12:00 09/19/17 11:59 08/25/17 13:03 Ondansetron HCl (Zofran) 4 mg Q6H PRN IVP Nausea & Vomiting 08/22/17 13:43 09/21/17 13:42 08/22/17 13:51 Piperacillin Sod/ Tazobactam Sod 3.375 gm/Sodium Chloride 110 ml @ 27.5 mls/hr EVERY 8 HOURS IVPB 08/23/17 22:00 08/28/17 21:59 08/26/17 05:02 Duy Dang MD August 26, 2017 10:36
[2017-08-26 12:00] VITALS: BP 114/71
[2017-08-26] MEDS ORDERED: AUGMENTIN 875-1 EAC1 ORAL (14:24)
--- NOTE | 2017-08-26 14:25 | Discharge Instructions ---
Discharge Instructions Discharge Instructions Follow Up Orders F/u with Dr. Rhodes in 1-[address]-guided biopsy For Congestive Heart Failure Reminder Report to your physician any weight gain of 5 pounds or more in one week. Janine Plasencia NP August 26, 2017 14:25
--- NOTE | 2017-08-27 08:04 | Discharge Summary ---
Discharge Summary Discharge Summary _ DATE OF ADMISSION: 08/20/2017 DATE OF DISCHARGE: 08/26/2017 REASON FOR ADMISSION: 52 years old male without significant past medical history presented to emergency department with complaint of right-sided chest pain. Patient reported cough and congestion for the last 10 days. Patient seen outpatient physician who started him on Levaquin, Motrin and antitussive. However patient reported not getting better. Cough was productive. Pain reported as sharp, nonradiating, 10 out of 10. Pain occurred with inspiration or coughing. He denied fever or chills. He admitted to smoking. Upon evaluation in emergency room patient was febrile. Laboratory workup revealed leukocytosis, WBC 14.6. Troponin negative. EKG revealed normal sinus rhythm, no acute ischemic changes Chest x-ray revealed right mid lung mass with subtle central cavitation. Neoplastic versus inflammatory. CTA of the chest revealed no evidence of large central pulmonary emboli. 4.5 x 3.9 x 4 cm cavitary mass in the periphery of the right lower lobe. Neoplastic versus inflammatory. Right hilar lymphadenopathy. Bilateral reticular interstitial and groundglass opacities. Patient was started on Rocephin and azithromycin. Patient admitted for further management with diagnosis off community-acquired bacterial pneumonia, cavitary pneumonia, sepsis secondary to pneumonia, tobacco abuse CONSULTANTS: pulmonary Dr. Rhodes ID specialist [facility] COURSE: Patient admitted. Patient was kept on airborne isolation. Infectious disease specialist and cell assembly pinner followed. Supplemental oxygen provided as needed to keep pulse oximetry above 92%. Pulmonary toilet provided. Patient was started on antibiotics as per ID specialist management. Sputum culture revealed no growth. Atypical and inflammatory serology sent. Blood culture negative. Sputum AFB 3 were negative. TB spot negative. HIV test was negative. ROSAS and ANCA negative. Follow-up with pending serology Nicotine patch started. Antitussive provided as needed. Patient was strongly encouraged and counseled on smoking cessation. Supportive care provided. Second troponin negative. EKG revealed no acute ischemic changes . Patient was ruled out for acute [place]. Echocardiogram revealed preserved ejection fraction of 60-65% with normal wall motion. Lipid panel within normal limits. Right-sided chest pain was likely secondary to pneumonia. Pain management was addressed, pain was controlled Patient declined CT guided biopsy to evaluate the mass. Patient preferred to have the test done after infection resolved. Per cell assembly pinner,complete the course of antibiotics and follow-up with cell assembly pinner in one week after discharge. Patient will have PET/CT in 4 weeks with close follow-up with cell assembly pinner. Per ID specialist, isolation was discontinued due to low suspicion for tuberculosis, given the negative AFB smear x 3 and negative TB spot. DVT and GI prophylaxis provided. Supportive care provided. Patient was stable for discharge home, complete the course of antibiotics, prescription provided. FINAL DIAGNOSES: Sepsis secondary to pneumonia Community-acquired bacterial pneumonia Cavitary pneumonia Tobacco abuse DISCHARGE MEDICATIONS: See Medication Reconciliation list. DISCHARGE INSTRUCTIONS: Patient was discharged home. Follow up with cell assembly pinner in one week. Complete the course of antibiotics. PET/CT to be done in 4 weeks. I have been assigned to dictate discharge summary for this account. I was not involved in the patient's management. Paty Kenney NP August 27, 2017 08:04
--- NOTE | 2017-08-27 18:21 | General Progress Note ---
Assessment/Plan Problem List: (1) Tobacco abuse ICD Codes: Z72.0 - Tobacco use SNOMED: 621455048 (2) Cavitary pneumonia ICD Codes: J18.9 - Pneumonia, unspecified organism; J98.4 - Other disorders of lung SNOMED: 013111392 (3) Sepsis due to pneumonia ICD Codes: J18.9 - Pneumonia, unspecified organism; A41.9 - Sepsis, unspecified organism SNOMED: 42287985, [id number] Assessment/Plan - Pulmonology and ID following, appreciate rec's - repeat CXR on 08/22 shows cavitary mass on right lung region, no change - s/p IV vancomycin (08/20-08/22). Continue IV zosyn and azithromycin (08/20 - ) - sputum cx no growth at 48 hours. will dc IV vancomycin per discussion with ID - AFB x 3 negative. AFB PCR x 1 negative. - airborne precautions - f/u blood cx - NGTD - atypical serologies sent: legionella, cryptococcus, coccidio, histoplasma, mycoplasma, M. pneumoniae, Aspergillus - f/u quantiferon gold -- negative - duonebs prn - Nicotine patch - IVF - TTE 60-65% - trops negative. EKG NSR. ACS ruled out. Right-sided chest pain likely 2/2 pneumonia - lipid panel, A1c - pain and supportive care - Patient refused CT-guided bx to evaluate the mass. Patient prefers to have this done after the infection resolves. Patient agrees to have a PET/CT in 4 weeks with close f/u with Dr. Rhodes in 1-2 weeks after hospital discharge - okay to discharge home with PO augmentin x 5 days. cleared per ID and health department. DVT Prophylaxis: SCD, HSQ Code Status: Full Hospital Classification Declaration: Based on this initial evaluation, and depending on the patient's clinical course, I anticipate that this patient will require hospitalization for 4-5 days for sepsis, atypical pneumonia and close respiratory/hemodynamic monitoring. Disposition: Once the patient is stable to leave the hospital, I anticipate the patient will likely be discharged to the following environment: home with HH I spent 41 minutes on this patient's case, and 23 minutes were dedicated to counseling and/or care coordination. Discussed with patient/family, nursing staff, SW/CM, ID, and metal crafts teacher regarding clinical status, treatment course , and disposition planning. Thank you, Dr. Rhodes, for this consultation. Time of note may not reflect time of encounter. Subjective Date patient seen: August 26, 2017 Time patient seen: 12:00 Allergies: Coded Allergies: No Known Allergies (Unverified , 08/19/17) Subjective - AFB smears all three negative and PCR negative - cleared per ID and okay to dc per the health department - doing well. 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
== END 2017-08-26 15:08 | disposition home or self-care (01) | DRG 720 ==
LOC: EMR 23:59 → 4E 08-20 04:18 → EDBEDREQ 08-20 05:36
DX: A41.9 Sepsis, unspecified organism (principal); J18.9 Pneumonia, unspecified organism; J98.4 Other disorders of lung; F17.200 Nicotine dependence, unspecified, uncomplicated; E75.5 Other lipid storage disorders
CPT/HCPCS: 36415; 71045; 71275; 80048; 80053; 80061; 80202; 81003; 82164; 82550; 82553; 83036; 83605; 84484; 85025; 85610; 85651; 85730; 86021; 86039; 86140; 86606; 86635; 86703; 86738; 87040; 87070; 87116; 87205; 87385; 87449; 87556; 93005; 93306; 94664; 99285; J2405